=== PATIENT | female | born 1935 | race Caucasian/White ===

== ENCOUNTER 2016-11-06 10:49 | Emergency (ER) | payer MEDICARE, BC ==
--- NOTE | 2016-11-06 11:09 | EDM.PDOC ---
ED HPI Trauma - General Chief Complaint: Upper Extremity Injury/Pain Stated Complaint: HURT RT THUMB Time Seen by Provider: 11/06/16 11:08 Source: Reports: Patient, Family History Limitations: Reports: No limitations - History of Present Illness INITIAL COMMENTS - FREE TEXT/NARRATIVE: pt fell last nite and landed on her thumb. She has bruising a nd a small lac on the [place] aspect. Occurred When: this evening Occurred Where: home Method of Injury: fall Pain/Injury Location: Reports: upper extremity, right Consciousness: Reports: no loss of consciousness Allergies/ADRs: Allergies ciprofloxacin Allergy (Mild, Verified 11/06/16 11:05) Itching noted during iv infusion on 10.10.14 niacin Allergy (Verified 11/06/16 11:05) Cannot Remember "body went crazy" Penicillins Allergy (Verified 11/06/16 11:05) Rash Sulfa (Sulfonamide Antibiotics) Allergy (Verified 11/06/16 11:05) Sweating tolmetin sodium [From Tolectin] Allergy (Verified 11/06/16 11:05) Itching Home Medications: Ambulatory Orders Calcium Carbonate 500 mg PO DAILY 07/13/13 [Confirmed 10/09/14] Clobetasol [Temovate 0.05% Oint] 0.05 percent TOP BID 07/13/13 [Confirmed ] Cyanocobalamin (Vitamin B-12) [Vitamin B-12] 1,000 mcg PO DAILY 07/13/13 [ Confirmed 10/09/14] Gabapentin [Neurontin] 300 mg PO TID 07/13/13 [Confirmed 10/09/14] Levothyroxine Sodium [Levoxyl] 50 mcg PO DAILY 07/13/13 [Confirmed 10/09/14] Lisinopril [Prinivil] 10 mg PO DAILY 07/13/13 [Confirmed 10/09/14] Multivitamin [Multi-Vitamin Daily] 1 each PO DAILY 07/13/13 [Confirmed 10/09/14] PARoxetine [Paxil] 30 mg PO DAILY 07/13/13 [Confirmed 10/09/14] glyBURIDE/Metformin [glyBURIDE/Metformin 2.5-500 MG] 1 tab PO BID 07/13/13 [ Confirmed 10/09/14] Cephalexin [Keflex 250 MG/5 ML Susp] 500 mg PO BID #70 ml 10/11/14 Social & Family History - Tobacco Use Smoking Status *Q: Never Smoker Years of Tobacco use: 30 Used Tobacco, but Quit: Yes Month Tobacco Last Used: 07/1984 Second Hand Smoke Exposure: No - Alcohol Use Days Per Week of Alcohol Use: 0 - Recreational Drug Use Recreational Drug Use: No Review of Systems - Review of Systems Review Of Systems: See Below Constitutional: Reports: no symptoms Eyes: Reports: no symptoms Ears: Reports: no symptoms Nose: Reports: no symptoms Musculoskeletal: Reports: other ( rt thumb is swolen and there is a lac on the back--layton aspect. ) Skin: Reports: no symptoms Neurological: Reports: Other (Pt falls alot and she has been dealing with this for the past 4-5 years. ) Trauma Exam - Physical Exam Exam: See Below Text/Narrative:: Pt arrived with a swollen thumb which is very uncomfortable Exam Limited By: No limitations General Appearance: Reports: alert Head: Reports: atraumatic Extremities: Reports: other ( rt thumb is swollen . She has a lac on the layton aspect. She is dislocated at the knuckle area of the thumb. This area was injected with lidocaine and the dislocation was reduced. ) Course - Vital Signs Last Recorded V/S: Last Vital Signs Temp 36.2 C 11/06/16 11:05 Pulse 105 H 11/06/16 11:05 Resp 18 11/06/16 11:05 BP 172/68 H 11/06/16 11:05 Pulse Ox 95 11/06/16 11:05 - Orders/Labs/Meds Orders: Active Orders 24 hr Category Date Time Status Fingers Thumb Rt F5 [CR] Stat Exams 11/06/16 11:07 Taken Fingers Thumb Rt F5 [CR] Stat Exams 11/06/16 11:58 Ordered Meds: Medications Discontinued Medications Generic Name Dose Route Start Last Admin Trade Name Freq PRN Reason Stop Dose Admin Bacitracin 1 dose 11/06/16 11:59 Bacitracin Oint 1 Gm TOP 11/06/16 12:00 ONETIME ONE Lidocaine HCl 5 ml 11/06/16 11:37 Xylocaine-Mpf 1% INJECT 11/06/16 11:38 ONETIME ONE Departure - Departure Time of Disposition: 12:05 Disposition: Home, Self-Care 01 Condition: fair Clinical Impression: Dislocation of PIP joint of finger Forms: ED Department Discharge Care Plan Goals: -- open dislocation. elevate , cool pack, splint for 1 week, keflex 500mg tid for 1 week, appt with Ortho in 1 week. - My Orders Last 24 Hours: My Active Orders 11/06/16 11:07 Fingers Thumb Rt F5 [CR] Stat 11/06/16 11:58 Fingers Thumb Rt F5 [CR] Stat - Assessment/Plan Last 24 Hours: My Active Orders 11/06/16 11:07 Fingers Thumb Rt F5 [CR] Stat 11/06/16 11:58 Fingers Thumb Rt F5 [CR] Stat
[2016-11-06 11:12] VITALS: BP 172/68
[2016-11-06] MEDS ORDERED: Bacitracin Oint 1 GM U/D Packet TOP ONE (11:59)
--- NOTE | 2016-11-06 12:56 | CR ---
Fingers Thumb Rt F5 INDICATION: 1 view post interval reduction. FINDINGS: Reduction of the dorsal dislocation of the IP joint of the thumb. Acute, distracted fractu re fragment involving the volar aspect of the distal phalanx.
--- NOTE | 2016-11-06 12:57 | CR ---
Fingers Thumb Rt F5 INDICATION: swelling and pain rt thumb FINDINGS: Dorsal dislocation of the IP joint. Cortical irregularity of the volar aspect of the base of the distal phalanx suspicious for fracture. Advanced degenerative changes first CMC joint.
== END 2016-11-06 12:35 | disposition home or self-care (01) ==
LOC: JP.ED 10:49
DX: S63.134A Dislocation of proximal interphalangeal joint of right thumb, initial encounter (principal); Z79.2 Long term (current) use of antibiotics; Z79.899 Other long term (current) drug therapy; Z88.1 Allergy status to other antibiotic agents; Z88.8 Allergy status to other drugs, medicaments and biological substances; Z88.0 Allergy status to penicillin; Z88.2 Allergy status to sulfonamides; W19.XXXA Unspecified fall, initial encounter; Y92.099 Unspecified place in other non-institutional residence as the place of occurrence of the external cause
CPT/HCPCS: 26725; 26770; 28660; 73140-26-F5; 73140-F5; 99283-25; 99284-25

== ENCOUNTER 2017-11-13 08:31 | Day surgery (SDC) | payer MEDICARE, BC ==
[2017-11-13] MEDS ORDERED: Lactated Ringers 1,000 ML IV SCH (09:15)
[2017-11-13] MEDS ORDERED: Cyanocobalamin (Vitamin B12) 1,000 MCG/ML SDV IM ONE (09:30)
[2017-11-13] MEDS ORDERED: Glycopyrrolate 0.2 MG/ML 2 ML SDV IVPUSH ONE (09:45)
[2017-11-13] MEDS ORDERED: MVI, Adult with Vitamin K 10 ML, Thiamine 100 MG, Chromium/Copper/Mang/Selen/Zn 1 ML in... IV ONE ×4 (09:45)
[2017-11-13] MEDS ORDERED: Propofol 200 MG/20 ML SDV ONE (12:38)
[2017-11-13 14:37] VITALS: BP 165/81
--- NOTE | 2017-11-17 11:01 | OR ---
DATE OF PROCEDURE: 11/13/2017 PREOPERATIVE DIAGNOSIS: Dysphagia status post Sean-en-Y gastric bypass. POSTOPERATIVE DIAGNOSIS: Normal upper GI endoscopic examination status post Sean-en-Y gastric bypass. ANESTHESIA: IV sedation. INDICATION FOR PROCEDURE: This is an 82-year-old status post Sean-en-Y gastric bypass in 2002. Presently, she is afflicted with quite severe dementia, but is reporting dysphagia referable to the distal esophagus to gastric pouch area. She is not presently on any antisecretory medication. The plan is to proceed with an upper GI endoscopy with biopsies and/or dilation as indicated. Potential risks including bleeding and perforation were discussed, and the patient wishes to proceed. DETAILS OF PROCEDURE: The patient was taken to the operating room and placed in a left lateral decubitus position. IV sedation was administered, after which the upper GI endoscope was passed orally through the length of the esophagus and into the gastric pouch, from there through the gastrojejunostomy roughly 20 cm into the Sean limb. Overall, there were no abnormalities noted. There were no areas of significant inflammation and no strictures or other problematic findings at any point during the examination. There was no bile or food within the Sean limb, i.e. no evidence of any partial small bowel obstruction. At this point, biopsies were obtained from the gastric pouch and sent for CLOtest to assess the patient's H. pylori status. Minimal bleeding from the biopsy sites was seen and the procedure then concluded. This situation was discussed with the patient's . I think, at this point, to the extent possible, the patient should be counseled to be sure to chew her food well and perhaps take some more frequent drinks of liquids during a meal. This will be fairly difficult due to the patient's quite profound dementia at this point. She will be following up with Rowan Vazquez in 1 month. Gualberto Velasco MD /[id number]
== END 2017-11-13 14:47 | disposition home or self-care (01) ==
LOC: JP.SDS 08:31
PROVIDERS: ATTEND Surgery
DX: R13.10 Dysphagia, unspecified (principal); F03.90 Unspecified dementia, unspecified severity, without behavioral disturbance, psychotic disturbance, mood disturbance, and anxiety; Z98.84 Bariatric surgery status; Z88.0 Allergy status to penicillin; Z88.1 Allergy status to other antibiotic agents; Z88.2 Allergy status to sulfonamides; Z88.8 Allergy status to other drugs, medicaments and biological substances
CPT/HCPCS: 43239; 87081; J2704; J3411; J3420; J7120; J3490

== ENCOUNTER 2020-05-03 12:05 | Emergency (ER) | payer MEDICARE ==
--- NOTE | 2020-05-03 12:28 | EDM.PDOC ---
<Nubia Keller M - Last Filed: 05/03/20 14:14> ED HPI GENERAL MEDICAL PROBLEM - General Chief Complaint: General Time Seen by Provider: 05/03/20 14:24 Source of Information: Reports: Patient, Old Records, RN, RN Notes Reviewed History Limitations: Reports: Altered Mental Status - History of Present Illness INITIAL COMMENTS - FREE TEXT/NARRATIVE: Pt here after call from spouse after pt fell off the bed about 6-12 inches. Pt was lying supine. Spouse was unable to get pt on feet due to history of stroke and uncooperative.EMS was called. Old records indicate a history of CVA, vascular dementia, and memory problems. When asked about medical conditions, pt was unable to provide any meaningful history. Old records were retrieved. Onset: Today - Related Data Allergies Allergy/AdvReac Type Severity Reaction Status Date / Time ciprofloxacin Allergy Mild Itching Verified 11/13/17 09:07 niacin Allergy Cannot Verified 11/13/17 09:07 Remember Penicillins Allergy Rash Verified 11/13/17 09:07 Sulfa (Sulfonamide Allergy Sweating Verified 11/13/17 09:07 Antibiotics) tolmetin sodium Allergy Itching Verified 11/13/17 09:07 [From Tolectin] Home Meds: Home Meds Cyanocobalamin (Vitamin B-12) [Vitamin B-12] 1,000 mcg PO DAILY 07/13/13 [History] Gabapentin [Neurontin] 300 mg PO TID 07/13/13 [History] Levothyroxine Sodium [Levoxyl] 50 mcg PO DAILY 07/13/13 [History] Multivitamin [Multi-Vitamin Daily] 1 each PO DAILY 07/13/13 [History] PARoxetine [Paxil] 30 mg PO DAILY 07/13/13 [History] lisinopriL [Prinivil] 10 mg PO DAILY 07/13/13 [History] Anastrozole [Arimidex] 1 mg PO DAILY 11/12/17 [History] Cholecalciferol (Vitamin D3) [Vitamin D3] 1,000 unit PO DAILY 11/12/17 [History] Donepezil HCl 5 mg PO BEDTIME 11/12/17 [History] Past Medical History HEENT History: Reports: Allergic Rhinitis Cardiovascular History: Reports: Hypertension Respiratory History: Reports: Bronchitis, Recurrent, Pneumonia, Recurrent, Sleep Apnea Gastrointestinal History: Reports: Chronic Constipation, GERD, Other (See Below) Other Gastrointestinal History: nausea and vomiting Genitourinary History: Reports: None 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: Musculoskeletal History: Reports: Back Pain, Chronic, Fibromyalgia, Other (See Below) Other Musculoskeletal History: bursitis Neurological History: Reports: Neuropathy, Peripheral, Other (See Below) Other Neuro History: dementia Psychiatric History: Reports: Anxiety, Dementia, Depression, Panic Attack Endocrine/Metabolic History: Reports: Diabetes, Type II, Hypothyroidism Hematologic History: Reports: B12 Deficiency Oncologic (Cancer) History: Reports: Breast - Infectious Disease History Infectious Disease History: Reports: Chicken Pox, Measles, Mumps - Past Surgical History HEENT Surgical History: Reports: Oral Surgery, Tonsillectomy GI Surgical History: Reports: Appendectomy, Bariatric Procedure, Cholecystectomy, Colonoscopy, EGD Female Surgical History: Reports: Hysterectomy Neurological Surgical History: Reports: None Musculoskeletal Surgical History: Reports: Hip Replacement Oncologic Surgical History: Reports: Mastectomy Social & Family History - Family History Family Medical History: Noncontributory - Tobacco Use Smoking Status *Q: Never Smoker - Caffeine Use Caffeine Use: Reports: Soda ED ROS GENERAL - Review of Systems Review Of Systems: See Below Constitutional: Reports: Weakness (Hx CVA) HEENT: Reports: No Symptoms Respiratory: Reports: No Symptoms Cardiovascular: Reports: No Symptoms Endocrine: Reports: No Symptoms GI/Abdominal: Reports: No Symptoms : Reports: No Symptoms Musculoskeletal: Reports: Other (Hx CVA) Skin: Reports: Pallor, Dryness Neurological: Reports: Confusion, Pre-Existing Deficit, Weakness (Hx CVA and vascular dementia per chart ) Psychiatric: Reports: Confusion Hematologic/Lymphatic: Reports: No Symptoms ED EXAM, GENERAL - Physical Exam Exam: See Below Exam Limited By: Altered Mental Status General Appearance: Alert, No Apparent Distress Eye Exam: Bilateral Eye: PERRL Ears: Normal External Exam Nose: Normal Inspection Throat/Mouth: Normal Inspection Head: Normocephalic Neck: Normal Inspection Respiratory/Chest: No Respiratory Distress, Lungs Clear, Normal Breath Sounds, No Accessory Muscle Use Cardiovascular: Regular Rate, Rhythm, No Edema Peripheral Pulses: 1+: Dorsalis Pedis (L), Dorsalis Pedis (R), 2+: Radial (L), Radial (R) GI/Abdominal: Normal Bowel Sounds, Soft (Female) Exam: Other (Visualization of labia and groin area is denueded and red. Labia appears edematous and errythmeic. ) Rectal (Female) Exam: Deferred Back Exam: Normal Inspection Extremities: Normal Inspection, Normal Range of Motion, No Pedal Edema, Normal Capillary Refill Neurological: Alert, Confused, Disoriented Psychiatric: Other (Combative at times ) Lymphatic: No Adenopathy Departure - Departure Disposition: Home, Self-Care 01 Condition: Fair Clinical Impression: Fall Qualifiers: Encounter type: initial encounter Qualified Code(s): W19.XXXA - Unspecified fall, initial encounter - Discharge Information *PRESCRIPTION DRUG MONITORING PROGRAM REVIEWED*: Not Applicable *COPY OF PRESCRIPTION DRUG MONITORING REPORT IN PATIENT KARAN: Not Applicable Referrals: PCP,None [Primary Care Provider] - Forms: ED Department Discharge Care Plan Goals: All of the labs, urinalysis, and chest xray was good and no infection could be found. Please call the primary provider with any follow up or call 911 with immediate medical concerns. - Problem List & Annotations (1) Fall SNOMED Code(s): 5166521, 348961279 Code(s): W19.XXXA - UNSPECIFIED FALL, INITIAL ENCOUNTER Status: Acute Priority: High Current Visit: Yes Qualifiers: Encounter type: initial encounter Qualified Code(s): W19.XXXA - Unspecified fall, initial encounter - Problem List Review Problem List Initiated/Reviewed/Updated: Yes - Assessment/Plan Plan: All of the labs, urinalysis, and chest xray was good and no infection could be found. Please call the primary provider with any follow up or call 911 with immediate medical concerns <OfficerRocky - Last Filed: 05/03/20 14:26> ED ROS GENERAL - Review of Systems Review Of Systems: Unable To Obtain Reason Not Obtained: Review of systems difficult to obtain secondary to underlying dem ED EXAM, GENERAL - Physical Exam Free Text/Narrative:: Agree with below Exam Limited By: Altered Mental Status (Difficult to assess secondary to underlying dementia) Course - Vital Signs Last Recorded V/S: Last Vital Signs Temp 97.4 F 05/03/20 13:28 Pulse 63 05/03/20 13:28 Resp 16 05/03/20 13:28 BP 147/56 H 05/03/20 13:28 Pulse Ox 99 05/03/20 13:28 - Orders/Labs/Meds Orders: Active Orders 24 hr Category Date Time Status CULTURE URINE [RM] Stat Lab 05/03/20 14:05 Ordered CULTURE URINE [RM] Urgent Lab 05/03/20 13:47 Received Labs: Laboratory Tests 05/03/20 05/03/20 05/03/20 Range/Units 12:33 12:33 12:33 WBC 8.9 (4.5-11.0) K/uL RBC 4.11 (3.30-5.50) M/uL Hgb 12.4 (12.0-15.0) g/dL Hct 39.2 (36.0-48.0) % MCV 95 (80-98) fL MCH 30 (27-31) pg MCHC 32 (32-36) % Plt Count 209 (150-400) K/uL Neut % (Auto) 59 (36-66) % Lymph % (Auto) 28 (24-44) % [place] % (Auto) 10 H (2-6) % Eos % (Auto) 2 (2-4) % Baso % (Auto) 0 (0-1) % Sodium 138 L (140-148) mmol/L Potassium 4.2 (3.6-5.2) mmol/L Chloride 103 (100-108) mmol/L Carbon Dioxide 26 (21-32) mmol/L Anion Gap 13.2 (5.0-14.0) mmol/L BUN 25 H (7-18) mg/dL Creatinine 1.3 H (0.6-1.0) mg/dL Est Cr Clr Drug Dosing 28.31 mL/min Estimated GFR (MDRD) 39 L (>60) Glucose 109 H (74-106) mg/dL Lactic Acid 1.5 (0.4-2.0) mmol/L Calcium 9.1 (8.5-10.1) mg/dL Total Bilirubin 1.2 H D (0.2-1.0) mg/dL AST 16 (15-37) U/L ALT 15 (12-78) U/L Alkaline Phosphatase 91 (46-116) U/L Total Protein 6.9 (6.4-8.2) g/dL Albumin 3.2 L (3.4-5.0) g/dL Globulin 3.7 H (2.3-3.5) g/dL Albumin/Globulin Ratio 0.9 L (1.2-2.2) Urine Color (YELLOW) Urine Appearance (CLEAR) Urine pH (5.0-8.0) Ur Specific [place] (1.008-1.030) Urine Protein (NEGATIVE) mg/dL Urine Glucose (UA) (NEGATIVE) mg/dL Urine Ketones (NEGATIVE) mg/dL Urine Occult Blood (NEGATIVE) Urine Nitrite (NEGATIVE) Urine Bilirubin (NEGATIVE) Urine Urobilinogen (0.2-1.0) EU/dL Ur Leukocyte Esterase (NEGATIVE) Urine RBC (0-5) Urine WBC (0-5) Ur Epithelial Cells Amorphous Sediment Urine Bacteria Urine Mucus 05/03/20 Range/Units 13:09 WBC (4.5-11.0) K/uL RBC (3.30-5.50) M/uL Hgb (12.0-15.0) g/dL Hct (36.0-48.0) % MCV (80-98) fL MCH (27-31) pg MCHC (32-36) % Plt Count (150-400) K/uL Neut % (Auto) (36-66) % Lymph % (Auto) (24-44) % [place] % (Auto) (2-6) % Eos % (Auto) (2-4) % Baso % (Auto) (0-1) % Sodium (140-148) mmol/L Potassium (3.6-5.2) mmol/L Chloride (100-108) mmol/L Carbon Dioxide (21-32) mmol/L Anion Gap (5.0-14.0) mmol/L BUN (7-18) mg/dL Creatinine (0.6-1.0) mg/dL Est Cr Clr Drug Dosing mL/min Estimated GFR (MDRD) (>60) Glucose (74-106) mg/dL Lactic Acid (0.4-2.0) mmol/L Calcium (8.5-10.1) mg/dL Total Bilirubin (0.2-1.0) mg/dL AST (15-37) U/L ALT (12-78) U/L Alkaline Phosphatase (46-116) U/L Total Protein (6.4-8.2) g/dL Albumin (3.4-5.0) g/dL Globulin (2.3-3.5) g/dL Albumin/Globulin Ratio (1.2-2.2) Urine Color Yellow (YELLOW) Urine Appearance Clear (CLEAR) Urine pH 8.5 H (5.0-8.0) Ur Specific [place] 1.020 (1.008-1.030) Urine Protein 30 H (NEGATIVE) mg/dL Urine Glucose (UA) Negative (NEGATIVE) mg/dL Urine Ketones Negative (NEGATIVE) mg/dL Urine Occult Blood Negative (NEGATIVE) Urine Nitrite Negative (NEGATIVE) Urine Bilirubin Negative (NEGATIVE) Urine Urobilinogen 0.2 (0.2-1.0) EU/dL Ur Leukocyte Esterase Negative (NEGATIVE) Urine RBC Not seen (0-5) Urine WBC Not seen (0-5) Ur Epithelial Cells Not seen Amorphous Sediment Not seen Urine Bacteria Not seen Urine Mucus Not seen Departure - Departure Time of Disposition: 14:26 Condition: Poor Sepsis Event Note (ED) - Focused Exam Vital Signs: Vital Signs Temp Pulse Resp BP Pulse Ox 05/03/20 13:28 97.4 F 63 16 147/56 H 99 05/03/20 12:17 97.4 F 63 16 147/56 H 99 - My Orders Last 24 Hours: My Active Orders 05/03/20 13:47 CULTURE URINE [RM] Urgent - Assessment/Plan Last 24 Hours: My Active Orders 05/03/20 13:47 CULTURE URINE [RM] Urgent Plan: Assessment Acuity = acute Site and laterality = fall out of bed complicated patient with underlying perla ia history of CVA Etiology = unknown Manifestations = none Location of injury = Home Lab values = CBC, CMP, urinalysis, chest x-ray revealed no acute process Plan Plan is discharged home to family follow-up with primary care as scheduled Rocky Ontiveros MD was personally available for consultation in the ED. I have reviewed the chart and agree with the documentation as recor ded by the [employer] ARCHITECT Student, including the assessment, treatment plan and disposition. Rocky Ontiveros MD personally saw and examined the patient. I have reviewed and agree with the [employer] ARCHITECT Student's findings. This note was dictated using [employer] voice recognition software please call with any questions on syntax or grammar.
[2020-05-03 12:30] VITALS: BP 147/56; PULSE 63
--- NOTE | 2020-05-03 14:17 | CRLCR ---
INDICATION: Trauma, fall. TECHNIQUE: Chest 1 views COMPARISON: November 01, 2010 FINDINGS: Cardiovascular and mediastinum: Heart size and vasculature are normal in caliber and appearance. Lungs and pleural spaces: Lungs are clear. No sign of infiltrate or mass. No sign of pleural effusion. No pneumothorax. Bones and soft tissues: No significant findings. IMPRESSION: Negative chest. No sign of acute injury or disease. Dictated by Jigar House MD @ 05/03/2020 2:15:13 PM Dictated by: Jigar House MD @ 05/03/2020 14:15:18 (Electronically Signed)
== END 2020-05-03 14:44 | disposition home or self-care (01) ==
LOC: JP.ED 12:05
DX: F03.90 Unspecified dementia, unspecified severity, without behavioral disturbance, psychotic disturbance, mood disturbance, and anxiety (principal); I10 Essential (primary) hypertension; E11.42 Type 2 diabetes mellitus with diabetic polyneuropathy; E03.9 Hypothyroidism, unspecified; F41.9 Anxiety disorder, unspecified; F32.9 Major depressive disorder, single episode, unspecified; Z86.73 Personal history of transient ischemic attack (TIA), and cerebral infarction without residual deficits; Z88.1 Allergy status to other antibiotic agents; Z79.899 Other long term (current) drug therapy
CPT/HCPCS: 36415; 71045; 80053; 81001; 83605; 85025; 87086; 87088; 87186; 99283; 99285-25

== ENCOUNTER 2020-09-14 10:07 | Observation (INO) | payer MEDICARE ==
--- NOTE | 2020-09-14 10:19 | EDM.PDOC ---
ED HPI GENERAL MEDICAL PROBLEM - General Stated Complaint: FALL VIA [facility] Time Seen by Provider: 09/14/20 10:10 Source of Information: Reports: EMS History Limitations: Reports: Physical Impairment (Patient has significant dementia) - History of Present Illness INITIAL COMMENTS - FREE TEXT/NARRATIVE: 85-year-old female brought in by ambulance because of increasing weakness over the past several days. She has had several falls and was found on her kitchen floor today so the ambulance was called. She does not complain of any pain, however she has significant dementia and is unable to answer questions appropriately and consistently. She feels "fine". Onset: Unknown/Unsure - Related Data Allergies Allergy/AdvReac Type Severity Reaction Status Date / Time ciprofloxacin Allergy Mild Itching Verified 11/13/17 09:07 niacin Allergy Cannot Verified 09/14/20 10:40 Remember Penicillins Allergy Rash Verified 09/14/20 10:40 Sulfa (Sulfonamide Allergy Sweating Verified 09/14/20 10:40 Antibiotics) tolmetin sodium Allergy Itching Verified 09/14/20 10:40 [From Tolectin] Home Meds: Home Meds Levothyroxine Sodium [Levoxyl] 50 mcg PO DAILY 07/13/13 [History] Cholecalciferol (Vitamin D3) [Vitamin D3] 1,000 unit PO DAILY 11/12/17 [History] Acetaminophen [Pain Reliever] 500 mg PO ASDIRECTED 09/14/20 [History] Aspirin 81 mg PO DAILY 09/14/20 [History] B-Complex with Vitamin C [B-Complex with C] 1 tab PO DAILY 09/14/20 [History] Citalopram Hydrobromide [Celexa] 40 mg PO DAILY 09/14/20 [History] Omeprazole 40 mg PO DAILY 09/14/20 [History] atorvaSTATin [Lipitor] 10 mg PO DAILY 09/14/20 [History] Past Medical History HEENT History: Reports: Allergic Rhinitis Cardiovascular History: Reports: Hypertension Respiratory History: Reports: Bronchitis, Recurrent, Pneumonia, Recurrent, Sleep Apnea Gastrointestinal History: Reports: Chronic Constipation, GERD, Other (See Below) Other Gastrointestinal History: nausea and vomiting Genitourinary History: Reports: 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: Musculoskeletal History: Reports: Back Pain, Chronic, Fibromyalgia, Other (See Below) Other Musculoskeletal History: bursitis Neurological History: Reports: Neuropathy, Peripheral, Other (See Below) Other Neuro History: dementia Psychiatric History: Reports: Anxiety, Dementia, Depression, Panic Attack Endocrine/Metabolic History: Reports: Diabetes, Type II, Hypothyroidism Hematologic History: Reports: B12 Deficiency Oncologic (Cancer) History: Reports: Breast - Infectious Disease History Infectious Disease History: Reports: Chicken Pox, Measles, Mumps - Past Surgical History HEENT Surgical History: Reports: Oral Surgery, Tonsillectomy GI Surgical History: Reports: Appendectomy, Bariatric Procedure, Cholecystectomy, Colonoscopy, EGD Female Surgical History: Reports: Hysterectomy Neurological Surgical History: Reports: None Musculoskeletal Surgical History: Reports: Hip Replacement Oncologic Surgical History: Reports: Mastectomy Social & Family History - Family History Family Medical History: No Pertinent Family History - Caffeine Use Caffeine Use: Reports: Soda ED ROS GENERAL - Review of Systems Review Of Systems: See Below (Unable to obtain as the patient's reply to everything is negative, likely inaccurate) ED EXAM, GENERAL - Physical Exam Exam: See Below Exam Limited By: No Limitations General Appearance: Alert, No Apparent Distress, Other (Patient is smiling, comfortable, pleasant) Eye Exam: Bilateral Eye: Normal Inspection Head: Atraumatic Neck: Supple Respiratory/Chest: Lungs Clear Cardiovascular: Regular Rate, Rhythm GI/Abdominal: Soft, Non-Tender (Female) Exam: Other (External genitalia, both vulva and perineal area are very hyperkeratotic and thickened, discolored but appears chronic. No significant tenderness with palpation). No: Normal External Exam Extremities: Normal Inspection. No: Pedal Edema Neurological: Alert. No: Oriented (Significantly confused, disoriented to time and place which is baseline) Psychiatric: Other (Extremely pleasant affect) Skin Exam: Warm, Dry (No bruising or ecchymosis seen) Course - Vital Signs Last Recorded V/S: Last Vital Signs Temp 96.9 F 09/15/20 08:10 Pulse 65 09/15/20 08:10 Resp 16 09/15/20 03:01 BP 149/46 H 09/15/20 08:10 Pulse Ox 97 09/15/20 08:10 - Orders/Labs/Meds Orders: Active Orders 24 hr Category Date Time Status CULTURE URINE [RM] Stat Lab 09/14/20 11:54 Results cefTRIAXone [Rocephin] 1 gm Med 09/14/20 14:00 Active Sodium Chloride 0.9% [Normal Saline] 50 ml IV Q24H Medication Orders Acetaminophen (Tylenol) 650 mg PO Q4H PRN PRN Reason: Pain (Mild 1-3)/fever Aspirin (Aspirin) 81 mg PO DAILY [facility] Last Admin: 09/15/20 08:34 Dose: 81 mg Documented by: ARABELLA Cosigned by: FELIPE Atorvastatin Calcium (Lipitor) 10 mg PO BEDTIME [facility] Enoxaparin Sodium (Lovenox) 30 mg SUBCUT DAILY [facility] Last Admin: 09/15/20 08:35 Dose: 30 mg Documented by: ARABELLA Cosigned by: FELIPE Haloperidol (Haldol) 1 mg PO Q2H PRN PRN Reason: Agitation Ceftriaxone Sodium 1 gm/ (Sodium Chloride) 50 mls @ 100 mls/hr IV Q24H [facility] Last Admin: 09/14/20 14:49 Dose: 100 mls/hr Documented by: ALEXX Sodium Chloride (Normal Saline) 1,000 mls @ 75 mls/hr IV ASDIRECTED [facility] Last Admin: 09/14/20 14:49 Dose: 75 mls/hr Documented by: [id number] Iopamidol (Isovue-300 (61%)) 100 ml IV . DIRECTED PRN PRN Reason: RADIOLOGY EXAM Stop: 09/15/20 15:20 Last Admin: 09/14/20 18:05 Dose: 100 ml Documented by: FAIZA Levothyroxine Sodium (Synthroid) 50 mcg PO ACBREAKFAST [facility] Last Admin: 09/15/20 08:33 Dose: 50 mcg Documented by: ARABELLA Cosigned by: FELIPE Melatonin (Melatonin) 9 mg PO BEDTIME [facility] Last Admin: 09/14/20 20:20 Dose: 9 mg Documented by: VIRGEN Ondansetron HCl (Zofran) 4 mg IV Q4H PRN PRN Reason: Nausea/Vomiting Omeprazole 40mg Cap ((Ptom)) 0 each PO ACBREAKFAST [facility] Last Admin: 09/15/20 08:32 Dose: 1 each Documented by: ARABELLA Cosigned by: FELIPE Citalopram 40mg Tab ((Ptom)) 0 each PO DAILY [facility] Last Admin: 09/15/20 08:36 Dose: 1 each Documented by: ARABELLA Cosigned by: FELIPE Polyethylene Glycol (Miralax) 17 gm PO DAILY PRN PRN Reason: Constipation Sodium Chloride (Saline Flush) 10 ml FLUSH ASDIRECTED PRN PRN Reason: Keep Vein Open Labs: Laboratory Tests 09/14/20 09/14/20 09/14/20 Range/Units 10:27 10:27 11:25 WBC 8.2 (4.5-11.0) K/uL RBC 3.73 (3.30-5.50) M/uL Hgb 11.9 L (12.0-15.0) g/dL Hct 36.5 (36.0-48.0) % MCV 98 (80-98) fL MCH 32 H (27-31) pg MCHC 33 (32-36) % Plt Count 147 L (150-400) K/uL Neut % (Auto) 52 (36-66) % Lymph % (Auto) 36 (24-44) % [place] % (Auto) 11 H (2-6) % Eos % (Auto) 2 (2-4) % Baso % (Auto) 0 (0-1) % Sodium 141 (140-148) mmol/L Potassium 4.3 (3.6-5.2) mmol/L Chloride 104 (100-108) mmol/L Carbon Dioxide 26 (21-32) mmol/L Anion Gap 10.7 (5.0-14.0) mmol/L BUN 25 H (7-18) mg/dL Creatinine 1.1 H (0.6-1.0) mg/dL Est Cr Clr Drug Dosing 32.75 mL/min Estimated GFR (MDRD) 47 L (>60) Glucose 88 (74-106) mg/dL Calcium 9.2 (8.5-10.1) mg/dL Total Bilirubin 1.4 H (0.2-1.0) mg/dL AST 16 (15-37) U/L ALT 18 (12-78) U/L Alkaline Phosphatase 84 (46-116) U/L Creatine Kinase 29 (26-192) U/L Total Protein 6.5 (6.4-8.2) g/dL Albumin 3.1 L (3.4-5.0) g/dL Globulin 3.4 (2.3-3.5) g/dL Albumin/Globulin Ratio 0.9 L (1.2-2.2) Urine Color Yellow (YELLOW) Urine Appearance Cloudy A (CLEAR) Urine pH 6.0 (5.0-8.0) Ur Specific [place] 1.020 (1.008-1.030) Urine Protein Negative (NEGATIVE) mg/dL Urine Glucose (UA) Negative (NEGATIVE) mg/dL Urine Ketones 15 H (NEGATIVE) mg/dL Urine Occult Blood Negative (NEGATIVE) Urine Nitrite Positive H (NEGATIVE) Urine Bilirubin Negative (NEGATIVE) Urine Urobilinogen 1.0 (0.2-1.0) EU/dL Ur Leukocyte Esterase Negative (NEGATIVE) Urine RBC 0-5 (0-5) Urine WBC 0-5 (0-5) Ur Epithelial Cells Not seen Amorphous Sediment Not seen Urine Bacteria Many Urine Mucus Not seen Meds: Medications Generic Name Dose Route Start Last Admin Trade Name Freq PRN Reason Stop Dose Admin Acetaminophen 650 mg 09/14/20 14:39 Tylenol PO Q4H PRN Pain (Mild 1-3)/fever Aspirin 81 mg 09/15/20 09:00 09/15/20 08:34 Aspirin PO 81 mg DAILY [facility] Administration Atorvastatin Calcium 10 mg 09/15/20 21:00 Lipitor PO BEDTIME [facility] Enoxaparin Sodium 30 mg 09/15/20 09:00 09/15/20 08:35 Lovenox SUBCUT 30 mg DAILY [facility] Administration Haloperidol 1 mg 09/14/20 14:39 Haldol PO Q2H PRN Agitation Ceftriaxone Sodium 1 gm/ 50 mls @ 100 mls/hr 09/14/20 14:00 09/14/20 14:49 Sodium Chloride IV 100 mls/hr Q24H [facility] Administration Sodium Chloride 1,000 mls @ 75 mls/hr 09/14/20 14:39 09/14/20 14:49 Normal Saline IV 75 mls/hr ASDIRECTED [facility] Administration Iopamidol 100 ml 09/14/20 15:19 09/14/20 18:05 Isovue-300 (61%) IV 09/15/20 15:20 100 ml . DIRECTED PRN Administration RADIOLOGY EXAM Levothyroxine Sodium 50 mcg 09/15/20 08:00 09/15/20 08:33 Synthroid PO 50 mcg ACBREAKFAST [facility] Administration Melatonin 9 mg 09/14/20 21:00 09/14/20 20:20 Melatonin PO 9 mg BEDTIME [facility] Administration Ondansetron HCl 4 mg 09/14/20 14:39 Zofran IV Q4H PRN Nausea/Vomiting Omeprazole 40mg Cap 0 each 09/15/20 08:00 09/15/20 08:32 (Ptom) PO 1 each ACBREAKFAST [facility] Administration Citalopram 40mg Tab 0 each 09/15/20 09:00 09/15/20 08:36 (Ptom) PO 1 each DAILY [facility] Administration Polyethylene Glycol 17 gm 09/14/20 14:39 Miralax PO DAILY PRN Constipation Sodium Chloride 10 ml 09/14/20 14:39 Saline Flush FLUSH ASDIRECTED PRN Keep Vein Open Discontinued Medications Generic Name Dose Route Start Last Admin Trade Name Freq PRN Reason Stop Dose Admin Enoxaparin Sodium 40 mg 09/14/20 16:00 09/14/20 17:24 Lovenox SUBCUT Not Given Q24H [facility] Lidocaine/Epinephrine 50 ml 09/15/20 09:00 Xylocaine 1% With Epinephrine 1:100,000 INJECT 09/15/20 09:01 ONETIME ONE Nitrofurantoin Macrocrystals 100 mg 09/14/20 11:51 09/14/20 13:12 Macrobid PO 09/14/20 11:52 100 mg ONETIME ONE Administration Sodium Chloride 10 ml 09/14/20 15:19 09/14/20 16:20 Saline Flush FLUSH 09/14/20 15:20 10 ml ONETIME ONE Administration - Re-Assessments/Exams Free Text/Narrative Re-Assessment/Exam: 09/14/20 10:19 Mini cath UA will be obtained as well as a CBC and CMP. CK to rule out possible rhabdomyolysis. 09/14/20 11:11 CBC and CMP are relatively normal, CK is normal. UA is pending. 09/14/20 12:03 UA is nitrite positive along with many bacteria. A culture was initiated and the patient was given 100 mg of oral Macrobid. She will be continued on that through the weekend for the next 5 days, and I talked to Chris Ojeda about rechecking her early next week not only to reassess her physical condition and her response to treatment, but also to discuss with the patient and family whether more evaluation of the perineal abnormalities need further investigation. 09/14/20 13:35 Patient was able to take the first dose of Macrobid but was unable to stand to assist on a commode. Apparently this is a fairly rapid escalation of weakness for her over the past several days and the family was barely able to take care of her to begin with. She still is not complaining of any pain anywhere, I had a discussion with her [id number] she is wondering if she may have had another small stroke. I think she will need admission to monitor for a few days and then decide whether long-term care is needed rather than going back home. Departure - Departure Time of Disposition: 14:44 Disposition: Home, Self-Care 01 Clinical Impression: UTI (urinary tract infection), uncomplicated, Weakness - Discharge Information - My Orders Last 24 Hours: My Active Orders 09/14/20 11:54 CULTURE URINE [RM] Stat - Assessment/Plan Last 24 Hours: My Active Orders 09/14/20 11:54 CULTURE URINE [RM] Stat
[2020-09-14] MEDS ORDERED: Nitrofurantoin Monohydrate/Macrocrystalline 100 MG Cap PO ONE (11:51)
--- NOTE | 2020-09-14 14:00 | PCM.HP.2 ---
H&P History of Present Illness - General Date of Service: 09/14/20 Admit Problem/Dx: Admission Diagnosis/Problem Admission Diagnosis/Problem Weakness Source of Information: Family, Provider, RN Notes Reviewed. No: Patient History Limitations: Reports: Altered Mental Status (Dementia with significant confusion) - History of Present Illness Initial Comments - Free Text/Narative: Ms. Stephens is an 85-year-old woman who was admitted to observation status through the emergency department with recent history of progressive weakness and worsening dementia with increased confusion. Dementia has been worsening over the past several months, now in the past week she has become extremely weak to the point where she has difficulty with transitions and increase in falls. She was brought into the emergency department because she fell this morning and they were unable to get her up off of the floor. Evaluation is unremarkable except for possible urinary tract infection. Family feels that they are unable to provide ongoing care for her at home because of her progressive weakness. 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 Patient is unable to provide a meaningful history concerning recent symptoms or review of systems because of her underlying dementia and cognitive impairment. - Related Data Allergies/Adverse Reactions: Allergies Allergy/AdvReac Type Severity Reaction Status Date / Time ciprofloxacin Allergy Mild Itching Verified 11/13/17 09:07 niacin Allergy Cannot Verified 09/14/20 10:40 Remember Penicillins Allergy Rash Verified 09/14/20 10:40 Sulfa (Sulfonamide Allergy Sweating Verified 09/14/20 10:40 Antibiotics) tolmetin sodium Allergy Itching Verified 09/14/20 10:40 [From Tolectin] Home Medications: Home Meds RX: Levothyroxine Sodium [Levoxyl] 50 mcg PO DAILY 07/13/13 [History] Cholecalciferol (Vitamin D3) [Vitamin D3] 1,000 unit PO DAILY 11/12/17 [History] B-Complex with Vitamin C [B-Complex with C] 1 tab PO DAILY 09/14/20 [History] RX: Acetaminophen [Pain Reliever] 500 mg PO ASDIRECTED 09/14/20 [History] RX: Aspirin 81 mg PO DAILY 09/14/20 [History] RX: Citalopram Hydrobromide [Celexa] 40 mg PO DAILY 09/14/20 [History] RX: Omeprazole 40 mg PO DAILY 09/14/20 [History] RX: atorvaSTATin [Lipitor] 10 mg PO DAILY 09/14/20 [History] Past Medical History HEENT History: Reports: Allergic Rhinitis Cardiovascular History: Reports: Hypertension Respiratory History: Reports: Bronchitis, Recurrent, Pneumonia, Recurrent, Sleep Apnea Gastrointestinal History: Reports: Chronic Constipation, GERD, Other (See Below) Other Gastrointestinal History: nausea and vomiting Genitourinary 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: Reports: 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: Musculoskeletal History: Reports: Back Pain, Chronic, Fibromyalgia, Other (See Below) Other Musculoskeletal History: bursitis Neurological History: Reports: Neuropathy, Peripheral, Other (See Below) Other Neuro History: dementia Psychiatric History: Reports: Anxiety, Dementia, Depression, Panic Attack Endocrine/Metabolic History: Reports: Diabetes, Type II, Hypothyroidism Hematologic History: Reports: B12 Deficiency Oncologic (Cancer) History: Reports: Breast - Infectious Disease History Infectious Disease History: Reports: Chicken Pox, Measles, Mumps - Past Surgical History HEENT Surgical History: Reports: Oral Surgery, Tonsillectomy GI Surgical History: Reports: Appendectomy, Bariatric Procedure, Cholecystectomy, Colonoscopy, EGD Female Surgical History: Reports: Hysterectomy Musculoskeletal Surgical History: Reports: Hip Replacement Oncologic Surgical History: Reports: Mastectomy Social & Family History - Family History Family Medical History: No Pertinent Family History - Tobacco Use Tobacco Use Status *Q: Unknown Ever Used Tobacco - Caffeine Use Caffeine Use: Reports: Soda H&P Review of Systems - Review of Systems: Review Of Systems: See Below General: Reports: ROS unobtainable (Dementia with confusion) Exam - Exam Exam: See Below - Vital Signs Vital Signs: Last Vital Signs Temp 98.9 F 09/14/20 10:32 Pulse 59 L 09/14/20 10:32 Resp 18 09/14/20 10:32 BP 158/53 H 09/14/20 10:32 Pulse Ox 100 09/14/20 10:32 Weight: 120 lb 2.431 oz - Exam Quality Assessment: DVT Prophylaxis General: Alert, Cooperative, Mild Distress. No: Oriented HEENT: Conjunctiva Clear, Hearing Intact, Mucosa Moist & [place], Normal Nasal Septum, Posterior Pharynx Clear, Pupils Equal Neck: Supple, Trachea Midline, +2 Carotid Pulse wo Bruit Lungs: Clear to Auscultation, Normal Respiratory Effort Cardiovascular: Regular Rate, Regular Rhythm, Normal S1, Normal S2. No: Systolic Murmur, Diastolic Murmur GI/Abdominal Exam: Soft, Non-Tender, No Organomegaly, No Distention (Female) Exam: Other (Thickened hypertrophic skin around the external genitalia) Back Exam: Normal Inspection, Full Range of Motion Extremities: Non-Tender, No Pedal Edema Skin: Warm, Dry, Intact Neurological: Cranial Nerves Intact, Strength Equal Bilateral, Normal Speech, Normal Tone, Sensation Intact. No: Focal Deficit Neuro Extensive - Mental Status: Alert, Normal Mood/Affect, Disorientation to Place, Disorientation to Time, Memory Loss-Remote Events, Memory Loss-Recent Events. No: Normal Cognition, Memory Intact - Patient Data Lab Results Last 24 hrs: Laboratory Results - last 24 hr 09/14/20 09/14/20 09/14/20 Range/Units 10:27 10:27 11:25 WBC 8.2 (4.5-11.0) K/uL RBC 3.73 (3.30-5.50) M/uL Hgb 11.9 L (12.0-15.0) g/dL Hct 36.5 (36.0-48.0) % MCV 98 (80-98) fL MCH 32 H (27-31) pg MCHC 33 (32-36) % Plt Count 147 L (150-400) K/uL Neut % (Auto) 52 (36-66) % Lymph % (Auto) 36 (24-44) % [place] % (Auto) 11 H (2-6) % Eos % (Auto) 2 (2-4) % Baso % (Auto) 0 (0-1) % Sodium 141 (140-148) mmol/L Potassium 4.3 (3.6-5.2) mmol/L Chloride 104 (100-108) mmol/L Carbon Dioxide 26 (21-32) mmol/L Anion Gap 10.7 (5.0-14.0) mmol/L BUN 25 H (7-18) mg/dL Creatinine 1.1 H (0.6-1.0) mg/dL Est Cr Clr Drug Dosing 32.75 mL/min Estimated GFR (MDRD) 47 L (>60) Glucose 88 (74-106) mg/dL Calcium 9.2 (8.5-10.1) mg/dL Total Bilirubin 1.4 H (0.2-1.0) mg/dL AST 16 (15-37) U/L ALT 18 (12-78) U/L Alkaline Phosphatase 84 (46-116) U/L Creatine Kinase 29 (26-192) U/L Total Protein 6.5 (6.4-8.2) g/dL Albumin 3.1 L (3.4-5.0) g/dL Globulin 3.4 (2.3-3.5) g/dL Albumin/Globulin Ratio 0.9 L (1.2-2.2) Urine Color Yellow (YELLOW) Urine Appearance Cloudy A (CLEAR) Urine pH 6.0 (5.0-8.0) Ur Specific [place] 1.020 (1.008-1.030) Urine Protein Negative (NEGATIVE) mg/dL Urine Glucose (UA) Negative (NEGATIVE) mg/dL Urine Ketones 15 H (NEGATIVE) mg/dL Urine Occult Blood Negative (NEGATIVE) Urine Nitrite Positive H (NEGATIVE) Urine Bilirubin Negative (NEGATIVE) Urine Urobilinogen 1.0 (0.2-1.0) EU/dL Ur Leukocyte Esterase Negative (NEGATIVE) Urine RBC 0-5 (0-5) Urine WBC 0-5 (0-5) Ur Epithelial Cells Not seen Amorphous Sediment Not seen Urine Bacteria Many Urine Mucus Not seen Result Diagrams: 09/14/20 10:27 09/14/20 10:27 Sepsis Event Note - Evaluation Sepsis Screening Result: No Definite Risk - Focused Exam Vital Signs: Vital Signs Temp Pulse Resp BP Pulse Ox 09/14/20 10:32 98.9 F 59 L 18 158/53 H 100 *Q Meaningful Use (ADM) - VTE Risk Assess *Q Each Risk Factor Represents 1 Point: None Total Score 1 Point Risk Factors: 0 Each Risk Factor Represents 2 Points: None Total Score 2 Point Risk Factors: 0 Each Risk Factor Represents 3 Points: Age 75 Years or Greater Total Score 3 Point Risk Factors: 3 Each Risk Factor Represents 5 Points: None Total Score 5 Point Risk Factors: 0 Venous Thromboembolism Risk Factor Score *Q: 3 Problem List Initiated/Reviewed/Updated: Yes Orders Last 24hrs: Active Orders 24 hr Category Date Time Status Patient Status Manage Transfer [TRANSFER] Routine ADT 09/14/20 13:54 Active CORONAVIRUS COVID-19, ANDREW Stat Lab 09/14/20 13:53 Ordered CULTURE URINE [RM] Stat Lab 09/14/20 11:54 Received cefTRIAXone [Rocephin] 1 gm Med 09/14/20 14:00 Active Sodium Chloride 0.9% [Normal Saline] 50 ml IV Q24H Resuscitation Status Routine Resus Stat 09/14/20 13:56 Ordered Medication Orders Ceftriaxone Sodium 1 gm/ (Sodium Chloride) 50 mls @ 100 mls/hr IV Q24H [facility] Assessment/Plan Comment:: ASSESSMENT AND PLAN WEAKNESS-this has been an issue for some time but abruptly worse over the last 24 hours. No obvious focal neurologic findings noted on exam but she has difficulty in cooperating with a detailed exam because of her dementia. Family would like to explore this further with CT scan but would be unlikely to do much more than that. -CT scan of the head with and without contrast -Physical therapy consult PROGRESSIVE DEMENTIA-this has become progressively worse over the past several months, is no longer able to care for her at home -Proceed with custodial placement POSSIBLE UTI-urinalysis does show some bacteria and positive nitrites but no white cells. 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 DISPOSITION-anticipate discharge to home after the hospital stay. PRIMARY CARE PROVIDER-Chris Ojeda - Mortality Measure Prognosis:: Good
[2020-09-14] MEDS ORDERED: Ondansetron 4 MG/2 ML SDV IV PRN (14:39)
[2020-09-14] MEDS ORDERED: Polyethylene Glycol 3350 Powder 17 GM Packet PO PRN (14:39)
[2020-09-14] MEDS ORDERED: Sodium Chloride 0.9% 1,000 ML IV SCH (14:39)
[2020-09-14] MEDS ORDERED: Haloperidol 1 MG Tab PO PRN (14:39)
[2020-09-14] MEDS ORDERED: Sodium Chloride 0.9% 10 ML Syringe FLUSH PRN (14:39)
[2020-09-14] MEDS ORDERED: Acetaminophen 325 MG Tab PO PRN (14:39)
[2020-09-14] MEDS: cefTRIAXone 1 GM in Sodium Chloride 0.9% 50 ML IV SCH (14:49)
[2020-09-14] MEDS ORDERED: Sodium Chloride 0.9% 10 ML Syringe FLUSH ONE (15:19)
[2020-09-14] MEDS ORDERED: Iopamidol 612 MG/ML 100 ML Bottle IV PRN (15:19)
[2020-09-14] MEDS ORDERED: Enoxaparin 40 MG/0.4 ML Syringe SUBCUT SCH (16:00)
--- NOTE | 2020-09-14 18:52 | CRLCT ---
INDICATION: new weakness, hx of CVA CT HEAD WITHOUT AND WITH CONTRAST TECHNIQUE: Multiple axial CT images were performed through the head prior to and following intravenous contrast administration using 100 mL Isovue-300. COMPARISON: 07/21/[address] FINDINGS: No acute intracranial hemorrhage is identified. No extra-axial collections are evident and there is no mass effect or midline shift. There is mild diffuse age-related brain atrophy, as before. Ventricular size and configuration are within normal limits for the patient`s age. There is a small chronic infarct in the right frontal lobe which is new compared to the prior exam. There is stable patchy hypodensity in the periventricular white matter, a nonspecific finding which most likely reflects chronic small vessel ischemic change. No abnormal intracranial enhancement is demonstrated. Intracranial atherosclerotic vascular calcifications are noted. Osseous structures are within normal limits and no fractures are seen. Included portions of the paranasal sinuses and mastoid air cells are normally aerated. IMPRESSION: 1. No acute intracranial abnormality identified. 2. Small chronic infarct in the right frontal lobe, new compared to the previous exam. 3. Mild age-related brain atrophy, white matter hypodensity consistent with chronic small vessel ischemic change, and intracranial atherosclerotic vascular calcifications, stable from before. SAM GRULLON MD [employer] Dictated by Min Grullon MD @ 09/14/2020 6:50:23 PM Dictated by: Min Grullon MD @ 09/14/2020 18:51:49 (Electronically Signed)
[2020-09-14] MEDS: Melatonin 3 MG Tab PO SCH (20:20)
--- NOTE | 2020-09-15 07:31 | PCM.CONS ---
H&P History of Present Illness - General Date of Service: 09/15/20 Admit Problem/Dx: Admission Diagnosis/Problem Admission Diagnosis/Problem Weakness Source of Information: EMS History Limitations: Reports: Other (patient has dementia ) - History of Present Illness Initial Comments - Free Text/Narative: Barbara is an 85 year old female who was admitted for other health problems and was noted to have a lesion and mass on her labia. Dominic Alcantara MD requested a surgical consultation. - Related Data Allergies/Adverse Reactions: Allergies Allergy/AdvReac Type Severity Reaction Status Date / Time ciprofloxacin Allergy Mild Itching Verified 11/13/17 09:07 niacin Allergy Cannot Verified 09/14/20 10:40 Remember Penicillins Allergy Rash Verified 09/14/20 10:40 Sulfa (Sulfonamide Allergy Sweating Verified 09/14/20 10:40 Antibiotics) tolmetin sodium Allergy Itching Verified 09/14/20 10:40 [From Tolectin] Home Medications: Home Meds Levothyroxine Sodium [Levoxyl] 50 mcg PO DAILY 07/13/13 [History] Cholecalciferol (Vitamin D3) [Vitamin D3] 1,000 unit PO DAILY 11/12/17 [History] Acetaminophen [Pain Reliever] 500 mg PO ASDIRECTED 09/14/20 [History] Aspirin 81 mg PO DAILY 09/14/20 [History] B-Complex with Vitamin C [B-Complex with C] 1 tab PO DAILY 09/14/20 [History] Citalopram Hydrobromide [Celexa] 40 mg PO DAILY 09/14/20 [History] Omeprazole 40 mg PO DAILY 09/14/20 [History] atorvaSTATin [Lipitor] 10 mg PO DAILY 09/14/20 [History] Past Medical History HEENT History: Reports: Allergic Rhinitis Cardiovascular History: Reports: Hypertension Respiratory History: Reports: Bronchitis, Recurrent, Pneumonia, Recurrent, Sleep Apnea Gastrointestinal History: Reports: Chronic Constipation, GERD, Other (See Below) Other Gastrointestinal History: nausea and vomiting Genitourinary History: Reports: None [employer] History: Reports: Musculoskeletal History: Reports: Back Pain, Chronic, Fibromyalgia, Other (See Below) Other Musculoskeletal History: bursitis Neurological History: Reports: Neuropathy, Peripheral, Other (See Below) Other Neuro History: dementia Psychiatric History: Reports: Anxiety, Dementia, Depression, Panic Attack Endocrine/Metabolic History: Reports: Diabetes, Type II, Hypothyroidism Hematologic History: Reports: B12 Deficiency Oncologic (Cancer) History: Reports: Breast - Infectious Disease History Infectious Disease History: Reports: Chicken Pox, Measles, Mumps - Past Surgical History HEENT Surgical History: Reports: Oral Surgery, Tonsillectomy GI Surgical History: Reports: Appendectomy, Bariatric Procedure, Cholecystectomy, Colonoscopy, EGD Female Surgical History: Reports: Hysterectomy Neurological Surgical History: Reports: None Musculoskeletal Surgical History: Reports: Hip Replacement Oncologic Surgical History: Reports: Mastectomy Social & Family History - Family History Family Medical History: No Pertinent Family History - Tobacco Use Tobacco Use Status *Q: Unknown Ever Used Tobacco - Caffeine Use Caffeine Use: Reports: Other H&P Review of Systems - Review of Systems: Review Of Systems: Unable To Obtain Reason Not Obtained: Dementia Exam - Exam Exam: See Below - Vital Signs Vital Signs: Last Vital Signs Temp 96.9 F 09/15/20 03:01 Pulse 75 09/15/20 03:01 Resp 16 09/15/20 03:01 BP 145/45 H 09/15/20 03:01 Pulse Ox 94 L 09/15/20 03:01 Weight: 123 lb 12.8 oz - Exam General: Other (confused ) HEENT: Other (very camara) Neck: Supple Lungs: Clear to Auscultation, Normal Respiratory Effort Cardiovascular: Regular Rate GI/Abdominal Exam: Soft (Female) Exam: Other (mass in the right labia with white skin discoloration in the right lateral labia fold. Tender to palpate.) Rectal (Female) Exam: Deferred Back Exam: Normal Inspection Extremities: Normal Inspection Skin: Warm, Dry, Intact Neurological: Clonus (not assessed ), Other Neuro Extensive - Mental Status: Disorientation to Person, Disorientation to Place, Disorientation to Time Neuro Extensive - Motor, Sensory, Reflexes: Other (not assessed) Psychiatric: Other (dementia - not able to understand speech ) - Patient Data Lab Results Last 24 hrs: Laboratory Results - last 24 hr 09/14/20 09/14/20 09/14/20 Range/Units 10:27 10:27 11:25 WBC 8.2 (4.5-11.0) K/uL RBC 3.73 (3.30-5.50) M/uL Hgb 11.9 L (12.0-15.0) g/dL Hct 36.5 (36.0-48.0) % MCV 98 (80-98) fL MCH 32 H (27-31) pg MCHC 33 (32-36) % Plt Count 147 L (150-400) K/uL Neut % (Auto) 52 (36-66) % Lymph % (Auto) 36 (24-44) % [place] % (Auto) 11 H (2-6) % Eos % (Auto) 2 (2-4) % Baso % (Auto) 0 (0-1) % Sodium 141 (140-148) mmol/L Potassium 4.3 (3.6-5.2) mmol/L Chloride 104 (100-108) mmol/L Carbon Dioxide 26 (21-32) mmol/L Anion Gap 10.7 (5.0-14.0) mmol/L BUN 25 H (7-18) mg/dL Creatinine 1.1 H (0.6-1.0) mg/dL Est Cr Clr Drug Dosing 32.75 mL/min Estimated GFR (MDRD) 47 L (>60) Glucose 88 (74-106) mg/dL Calcium 9.2 (8.5-10.1) mg/dL Magnesium (1.8-2.4) mg/dL Total Bilirubin 1.4 H (0.2-1.0) mg/dL AST 16 (15-37) U/L ALT 18 (12-78) U/L Alkaline Phosphatase 84 (46-116) U/L Creatine Kinase 29 (26-192) U/L Total Protein 6.5 (6.4-8.2) g/dL Albumin 3.1 L (3.4-5.0) g/dL Globulin 3.4 (2.3-3.5) g/dL Albumin/Globulin Ratio 0.9 L (1.2-2.2) Urine Color Yellow (YELLOW) Urine Appearance Cloudy A (CLEAR) Urine pH 6.0 (5.0-8.0) Ur Specific [place] 1.020 (1.008-1.030) Urine Protein Negative (NEGATIVE) mg/dL Urine Glucose (UA) Negative (NEGATIVE) mg/dL Urine Ketones 15 H (NEGATIVE) mg/dL Urine Occult Blood Negative (NEGATIVE) Urine Nitrite Positive H (NEGATIVE) Urine Bilirubin Negative (NEGATIVE) Urine Urobilinogen 1.0 (0.2-1.0) EU/dL Ur Leukocyte Esterase Negative (NEGATIVE) Urine RBC 0-5 (0-5) Urine WBC 0-5 (0-5) Ur Epithelial Cells Not seen Amorphous Sediment Not seen Urine Bacteria Many Urine Mucus Not seen SARS CoV-2 RNA Rapid ANDREW 09/14/20 09/15/20 09/15/20 Range/Units 20:52 04:53 04:53 WBC 6.9 (4.5-11.0) K/uL RBC 3.52 (3.30-5.50) M/uL Hgb 11.0 L (12.0-15.0) g/dL Hct 34.2 L (36.0-48.0) % MCV 97 (80-98) fL MCH 31 (27-31) pg MCHC 32 (32-36) % Plt Count 155 (150-400) K/uL Neut % (Auto) 52 (36-66) % Lymph % (Auto) 34 (24-44) % [place] % (Auto) 12 H (2-6) % Eos % (Auto) 2 (2-4) % Baso % (Auto) 0 (0-1) % Sodium 143 (140-148) mmol/L Potassium 4.3 (3.6-5.2) mmol/L Chloride 108 (100-108) mmol/L Carbon Dioxide 26 (21-32) mmol/L Anion Gap 8.7 (5.0-14.0) mmol/L BUN 27 H (7-18) mg/dL Creatinine 1.3 H (0.6-1.0) mg/dL Est Cr Clr Drug Dosing 27.82 mL/min Estimated GFR (MDRD) 39 L (>60) Glucose 97 (74-106) mg/dL Calcium 9.0 (8.5-10.1) mg/dL Magnesium 2.0 (1.8-2.4) mg/dL Total Bilirubin (0.2-1.0) mg/dL AST (15-37) U/L ALT (12-78) U/L Alkaline Phosphatase (46-116) U/L Creatine Kinase (26-192) U/L Total Protein (6.4-8.2) g/dL Albumin (3.4-5.0) g/dL Globulin (2.3-3.5) g/dL Albumin/Globulin Ratio (1.2-2.2) Urine Color (YELLOW) Urine Appearance (CLEAR) Urine pH (5.0-8.0) Ur Specific [place] (1.008-1.030) Urine Protein (NEGATIVE) mg/dL Urine Glucose (UA) (NEGATIVE) mg/dL Urine Ketones (NEGATIVE) mg/dL Urine Occult Blood (NEGATIVE) Urine Nitrite (NEGATIVE) Urine Bilirubin (NEGATIVE) Urine Urobilinogen (0.2-1.0) EU/dL Ur Leukocyte Esterase (NEGATIVE) Urine RBC (0-5) Urine WBC (0-5) Ur Epithelial Cells Amorphous Sediment Urine Bacteria Urine Mucus SARS CoV-2 RNA Rapid ANDREW Negative Result Diagrams: 09/15/20 04:53 09/15/20 04:53 Timoteo Results Last 24 hrs: Microbiology 09/14/20 11:54 Urine Culture - Preliminary Urine, Quick Cath (In-Out) Sepsis Event Note - Evaluation Sepsis Screening Result: No Definite Risk - Focused Exam Vital Signs: Vital Signs Temp Temp Pulse Resp BP Pulse Ox 09/15/20 03:01 96.9 F 75 16 145/45 H 94 L 09/14/20 22:36 98.3 F 92 17 133/45 L 95 09/14/20 20:13 96.9 F 90 16 122/41 L 96 Consult PN Assessment/Plan POD#: 0 Procedures: Procedures AGENT NOS ASSAY W/OPTIC (10/09/14) ASSAY OF LACTIC ACID (05/03/20) BREAST TOMOSYNTHESIS BI (10/14/18) BX BREAST PERCUT W/IMAGE (07/13/13) C DIFF AMPLIFIED PROBE (10/09/14) CARDIOVASCULAR STRESS TEST (08/11/13) CARDIOVASCULAR STRESS TEST (08/11/13) COLONOSCOPY W/LESION REMOVAL (08/02/13) COMP SCREEN MAMMOGRAM ADD-ON (11/01/15) COMPLETE CBC W/AUTO DIFF WBC (05/03/20) COMPREHEN METABOLIC PANEL (05/03/20) CT ABD & PELV W/CONTRAST (06/26/17) CT HEAD/BRAIN W/O DYE (07/21/18) CULTURE AEROBIC IDENTIFY (10/09/14) CULTURE SCREEN ONLY (11/13/17) ECHO GUIDE FOR BIOPSY (07/13/13) EGD BIOPSY SINGLE/MULTIPLE (11/13/17) EMERGENCY DEPT VISIT (05/03/20) EMERGENCY DEPT VISIT (11/06/16) EMERGENCY DEPT VISIT (11/06/16) GLUCOSE BLOOD TEST (10/09/14) HT MUSCLE IMAGE SPECT MULT (08/11/13) HYDRATE IV INFUSION ADD-ON (10/09/14) IMMUNOHISTO ANTB 1ST STAIN (07/13/13) METABOLIC PANEL TOTAL CA (10/09/14) MICROBE SUSCEPTIBLE TIMOTEO (05/03/20) MRI BRAIN STEM W/O DYE (11/27/16) PT EVALUATION (10/09/14) RA TRACER ID OF SENTINL NODE (08/16/13) REAGENT STRIP/BLOOD GLUCOSE (08/16/13) ROUTINE VENIPUNCTURE (05/03/20) SCR MAMMO BI INCL CAD (10/14/18) SELF CARE MNGMENT TRAINING (10/09/14) STOOL CULTR AEROBIC BACT EA (10/09/14) THER/PROPH/DIAG INJ IV PUSH (10/09/14) THER/PROPH/DIAG INJ SC/IM (10/09/14) THERAPEUTIC ACTIVITIES (10/09/14) TISSUE EXAM BY PATHOLOGIST (08/16/13) TISSUE EXAM BY PATHOLOGIST (08/16/13) TISSUE EXAM BY PATHOLOGIST (08/02/13) TREAT FINGER DISLOCATION (11/06/16) TREAT FINGER FRACTURE EACH (11/06/16) TUMOR IMMUNOHISTOCHEM/MANUAL (07/13/13) URINALYSIS AUTO W/SCOPE (05/03/20) URINE BACTERIA CULTURE (05/03/20) URINE CULTURE/COLONY COUNT (05/03/20) US EXAM BREAST(S) (06/21/13) X-RAY EXAM CHEST 1 VIEW (05/03/20) X-RAY EXAM OF FINGER(S) (11/06/16) X-RAY EXAM OF HAND (11/11/16) (1) Perineal mass in female SNOMED Code(s): 149120383, 947543271 Code(s): N90.89 - [facility] NONINFLAMMATORY DISORDERS OF VULVA AND PERINEUM Current Visit: Yes Problem List Initiated/Reviewed/Updated: Yes My Orders Last 24 Hours: My Active Orders 09/15/20 07:03 Verify Patient Consent Obtain [RC] ASDIRECTED Plan: Plan: Biopsy of Mass Right Labia - IV Sedation - 09/15/2020 - Case to Follow Gualberto Velasco MD Thank you for this consultation. Rowan GUZMAN C
[2020-09-15] MEDS: OMEPRAZOLE 40MG CAP (PTOM) PO SCH (08:32)
[2020-09-15] MEDS: LEVOTHYROXINE 50 MCG PO SCH (08:33)
[2020-09-15] MEDS: Aspirin 81 MG Tab.Chew PO SCH (08:34)
[2020-09-15] MEDS: Enoxaparin 30 MG/0.3 ML Syringe SUBCUT SCH (08:35)
[2020-09-15] MEDS: CITALOPRAM 40MG TAB (PTOM) PO SCH (08:36)
[2020-09-15] MEDS ORDERED: Non-Formulary Medication 1 Each (Omeprazole [Omeprazole] 40 MG) PO SCH (09:00)
[2020-09-15] MEDS ORDERED: Non-Formulary Medication 1 Each (Citalopram Hydrobromide [Celexa] 40 MG) PO SCH (09:00)
[2020-09-15] MEDS ORDERED: Lidocaine 1% with EPINEPHrine 1:100,000 50 ML MDV INJECT ONE (09:00)
--- NOTE | 2020-09-15 10:38 | PCM.PN ---
- General Info Date of Service: 09/15/20 Subjective Update: Ms. Stephens has been stable since admission yesterday. She remains confused and is unable to provide meaningful information concerning symptoms or review of systems. Vital signs have been good and she has remained afebrile. She has been seen and evaluated by Dr. Velasco with plan for biopsy of the perineal lesion today. - Patient Data Vitals - Most Recent: Last Vital Signs Temp 96.9 F 09/15/20 08:10 Pulse 65 09/15/20 08:10 Resp 16 09/15/20 03:01 BP 149/46 H 09/15/20 08:10 Pulse Ox 97 09/15/20 08:10 Weight - Most Recent: 123 lb 12.8 oz I&O - Last 24 Hours: Intake & Output 09/14/20 09/15/20 09/15/20 22:59 06:59 14:59 Intake Total 200 300 90 Balance 200 300 90 Lab Results Last 24 Hours: Laboratory Results - last 24 hr 09/14/20 09/14/20 09/14/20 Range/Units 10:27 11:25 20:52 WBC (4.5-11.0) K/uL RBC (3.30-5.50) M/uL Hgb (12.0-15.0) g/dL Hct (36.0-48.0) % MCV (80-98) fL MCH (27-31) pg MCHC (32-36) % Plt Count (150-400) K/uL Neut % (Auto) (36-66) % Lymph % (Auto) (24-44) % [place] % (Auto) (2-6) % Eos % (Auto) (2-4) % Baso % (Auto) (0-1) % Sodium 141 (140-148) mmol/L Potassium 4.3 (3.6-5.2) mmol/L Chloride 104 (100-108) mmol/L Carbon Dioxide 26 (21-32) mmol/L Anion Gap 10.7 (5.0-14.0) mmol/L BUN 25 H (7-18) mg/dL Creatinine 1.1 H (0.6-1.0) mg/dL Est Cr Clr Drug Dosing 32.75 mL/min Estimated GFR (MDRD) 47 L (>60) Glucose 88 (74-106) mg/dL Calcium 9.2 (8.5-10.1) mg/dL Magnesium (1.8-2.4) mg/dL Total Bilirubin 1.4 H (0.2-1.0) mg/dL AST 16 (15-37) U/L ALT 18 (12-78) U/L Alkaline Phosphatase 84 (46-116) U/L Creatine Kinase 29 (26-192) U/L Total Protein 6.5 (6.4-8.2) g/dL Albumin 3.1 L (3.4-5.0) g/dL Globulin 3.4 (2.3-3.5) g/dL Albumin/Globulin Ratio 0.9 L (1.2-2.2) Urine Color Yellow (YELLOW) Urine Appearance Cloudy A (CLEAR) Urine pH 6.0 (5.0-8.0) Ur Specific [place] 1.020 (1.008-1.030) Urine Protein Negative (NEGATIVE) mg/dL Urine Glucose (UA) Negative (NEGATIVE) mg/dL Urine Ketones 15 H (NEGATIVE) mg/dL Urine Occult Blood Negative (NEGATIVE) Urine Nitrite Positive H (NEGATIVE) Urine Bilirubin Negative (NEGATIVE) Urine Urobilinogen 1.0 (0.2-1.0) EU/dL Ur Leukocyte Esterase Negative (NEGATIVE) Urine RBC 0-5 (0-5) Urine WBC 0-5 (0-5) Ur Epithelial Cells Not seen Amorphous Sediment Not seen Urine Bacteria Many Urine Mucus Not seen SARS CoV-2 RNA Rapid ANDREW Negative 09/15/20 09/15/20 Range/Units 04:53 04:53 WBC 6.9 (4.5-11.0) K/uL RBC 3.52 (3.30-5.50) M/uL Hgb 11.0 L (12.0-15.0) g/dL Hct 34.2 L (36.0-48.0) % MCV 97 (80-98) fL MCH 31 (27-31) pg MCHC 32 (32-36) % Plt Count 155 (150-400) K/uL Neut % (Auto) 52 (36-66) % Lymph % (Auto) 34 (24-44) % [place] % (Auto) 12 H (2-6) % Eos % (Auto) 2 (2-4) % Baso % (Auto) 0 (0-1) % Sodium 143 (140-148) mmol/L Potassium 4.3 (3.6-5.2) mmol/L Chloride 108 (100-108) mmol/L Carbon Dioxide 26 (21-32) mmol/L Anion Gap 8.7 (5.0-14.0) mmol/L BUN 27 H (7-18) mg/dL Creatinine 1.3 H (0.6-1.0) mg/dL Est Cr Clr Drug Dosing 27.82 mL/min Estimated GFR (MDRD) 39 L (>60) Glucose 97 (74-106) mg/dL Calcium 9.0 (8.5-10.1) mg/dL Magnesium 2.0 (1.8-2.4) mg/dL Total Bilirubin (0.2-1.0) mg/dL AST (15-37) U/L ALT (12-78) U/L Alkaline Phosphatase (46-116) U/L Creatine Kinase (26-192) U/L Total Protein (6.4-8.2) g/dL Albumin (3.4-5.0) g/dL Globulin (2.3-3.5) g/dL Albumin/Globulin Ratio (1.2-2.2) Urine Color (YELLOW) Urine Appearance (CLEAR) Urine pH (5.0-8.0) Ur Specific [place] (1.008-1.030) Urine Protein (NEGATIVE) mg/dL Urine Glucose (UA) (NEGATIVE) mg/dL Urine Ketones (NEGATIVE) mg/dL Urine Occult Blood (NEGATIVE) Urine Nitrite (NEGATIVE) Urine Bilirubin (NEGATIVE) Urine Urobilinogen (0.2-1.0) EU/dL Ur Leukocyte Esterase (NEGATIVE) Urine RBC (0-5) Urine WBC (0-5) Ur Epithelial Cells Amorphous Sediment Urine Bacteria Urine Mucus SARS CoV-2 RNA Rapid ANDREW Timoteo Results Last 24 Hours: Microbiology 09/14/20 11:54 Urine Culture - Preliminary Urine, Quick Cath (In-Out) Med Orders - Current: Current Medications Acetaminophen (Tylenol) 650 mg PO Q4H PRN PRN Reason: Pain (Mild 1-3)/fever Aspirin (Aspirin) 81 mg PO DAILY [facility] Last Admin: 09/15/20 08:34 Dose: 81 mg Documented by: Atorvastatin Calcium (Lipitor) 10 mg PO BEDTIME [facility] Enoxaparin Sodium (Lovenox) 30 mg SUBCUT DAILY [facility] Last Admin: 09/15/20 08:35 Dose: 30 mg Documented by: Haloperidol (Haldol) 1 mg PO Q2H PRN PRN Reason: Agitation Ceftriaxone Sodium 1 gm/ (Sodium Chloride) 50 mls @ 100 mls/hr IV Q24H [facility] Last Admin: 09/14/20 14:49 Dose: 100 mls/hr Documented by: Iopamidol (Isovue-300 (61%)) 100 ml IV . DIRECTED PRN PRN Reason: RADIOLOGY EXAM Stop: 09/15/20 15:20 Last Admin: 09/14/20 18:05 Dose: 100 ml Documented by: Levothyroxine Sodium (Synthroid) 50 mcg PO ACBREAKFAST [facility] Last Admin: 09/15/20 08:33 Dose: 50 mcg Documented by: Melatonin (Melatonin) 9 mg PO BEDTIME [facility] Last Admin: 09/14/20 20:20 Dose: 9 mg Documented by: Ondansetron HCl (Zofran) 4 mg IV Q4H PRN PRN Reason: Nausea/Vomiting Omeprazole 40mg Cap ((Ptom)) 0 each PO ACBREAKFAST [facility] Last Admin: 09/15/20 08:32 Dose: 1 each Documented by: Citalopram 40mg Tab ((Ptom)) 0 each PO DAILY [facility] Last Admin: 09/15/20 08:36 Dose: 1 each Documented by: Polyethylene Glycol (Miralax) 17 gm PO DAILY PRN PRN Reason: Constipation Sodium Chloride (Saline Flush) 10 ml FLUSH ASDIRECTED PRN PRN Reason: Keep Vein Open Discontinued Medications Enoxaparin Sodium (Lovenox) 40 mg SUBCUT Q24H [facility] Last Admin: 09/14/20 17:24 Dose: Not Given Documented by: Sodium Chloride (Normal Saline) 1,000 mls @ 75 mls/hr IV ASDIRECTED [facility] Last Admin: 09/14/20 14:49 Dose: 75 mls/hr Documented by: Lidocaine/Epinephrine (Xylocaine 1% With Epinephrine 1:100,000) 50 ml INJECT ONETIME ONE Stop: 09/15/20 09:01 Nitrofurantoin Macrocrystals (Macrobid) 100 mg PO ONETIME ONE Stop: 09/14/20 11:52 Last Admin: 09/14/20 13:12 Dose: 100 mg Documented by: Sodium Chloride (Saline Flush) 10 ml FLUSH ONETIME ONE Stop: 09/14/20 15:20 Last Admin: 09/14/20 16:20 Dose: 10 ml Documented by: - Exam Quality Assessment: DVT Prophylaxis General: Alert, Cooperative, No Acute Distress. No: Oriented Lungs: Clear to Auscultation, Normal Respiratory Effort Cardiovascular: Regular Rate, Regular Rhythm, No Murmurs GI/Abdominal Exam: Soft, Non-Tender, No Organomegaly, No Distention Extremities: Non-Tender, No Pedal Edema - Patient Data Lab Results Last 24 hrs: Laboratory Results - last 24 hr 09/14/20 09/14/20 09/14/20 Range/Units 10:27 11:25 20:52 WBC (4.5-11.0) K/uL RBC (3.30-5.50) M/uL Hgb (12.0-15.0) g/dL Hct (36.0-48.0) % MCV (80-98) fL MCH (27-31) pg MCHC (32-36) % Plt Count (150-400) K/uL Neut % (Auto) (36-66) % Lymph % (Auto) (24-44) % [place] % (Auto) (2-6) % Eos % (Auto) (2-4) % Baso % (Auto) (0-1) % Sodium 141 (140-148) mmol/L Potassium 4.3 (3.6-5.2) mmol/L Chloride 104 (100-108) mmol/L Carbon Dioxide 26 (21-32) mmol/L Anion Gap 10.7 (5.0-14.0) mmol/L BUN 25 H (7-18) mg/dL Creatinine 1.1 H (0.6-1.0) mg/dL Est Cr Clr Drug Dosing 32.75 mL/min Estimated GFR (MDRD) 47 L (>60) Glucose 88 (74-106) mg/dL Calcium 9.2 (8.5-10.1) mg/dL Magnesium (1.8-2.4) mg/dL Total Bilirubin 1.4 H (0.2-1.0) mg/dL AST 16 (15-37) U/L ALT 18 (12-78) U/L Alkaline Phosphatase 84 (46-116) U/L Creatine Kinase 29 (26-192) U/L Total Protein 6.5 (6.4-8.2) g/dL Albumin 3.1 L (3.4-5.0) g/dL Globulin 3.4 (2.3-3.5) g/dL Albumin/Globulin Ratio 0.9 L (1.2-2.2) Urine Color Yellow (YELLOW) Urine Appearance Cloudy A (CLEAR) Urine pH 6.0 (5.0-8.0) Ur Specific [place] 1.020 (1.008-1.030) Urine Protein Negative (NEGATIVE) mg/dL Urine Glucose (UA) Negative (NEGATIVE) mg/dL Urine Ketones 15 H (NEGATIVE) mg/dL Urine Occult Blood Negative (NEGATIVE) Urine Nitrite Positive H (NEGATIVE) Urine Bilirubin Negative (NEGATIVE) Urine Urobilinogen 1.0 (0.2-1.0) EU/dL Ur Leukocyte Esterase Negative (NEGATIVE) Urine RBC 0-5 (0-5) Urine WBC 0-5 (0-5) Ur Epithelial Cells Not seen Amorphous Sediment Not seen Urine Bacteria Many Urine Mucus Not seen SARS CoV-2 RNA Rapid ANDREW Negative 09/15/20 09/15/20 Range/Units 04:53 04:53 WBC 6.9 (4.5-11.0) K/uL RBC 3.52 (3.30-5.50) M/uL Hgb 11.0 L (12.0-15.0) g/dL Hct 34.2 L (36.0-48.0) % MCV 97 (80-98) fL MCH 31 (27-31) pg MCHC 32 (32-36) % Plt Count 155 (150-400) K/uL Neut % (Auto) 52 (36-66) % Lymph % (Auto) 34 (24-44) % [place] % (Auto) 12 H (2-6) % Eos % (Auto) 2 (2-4) % Baso % (Auto) 0 (0-1) % Sodium 143 (140-148) mmol/L Potassium 4.3 (3.6-5.2) mmol/L Chloride 108 (100-108) mmol/L Carbon Dioxide 26 (21-32) mmol/L Anion Gap 8.7 (5.0-14.0) mmol/L BUN 27 H (7-18) mg/dL Creatinine 1.3 H (0.6-1.0) mg/dL Est Cr Clr Drug Dosing 27.82 mL/min Estimated GFR (MDRD) 39 L (>60) Glucose 97 (74-106) mg/dL Calcium 9.0 (8.5-10.1) mg/dL Magnesium 2.0 (1.8-2.4) mg/dL Total Bilirubin (0.2-1.0) mg/dL AST (15-37) U/L ALT (12-78) U/L Alkaline Phosphatase (46-116) U/L Creatine Kinase (26-192) U/L Total Protein (6.4-8.2) g/dL Albumin (3.4-5.0) g/dL Globulin (2.3-3.5) g/dL Albumin/Globulin Ratio (1.2-2.2) Urine Color (YELLOW) Urine Appearance (CLEAR) Urine pH (5.0-8.0) Ur Specific [place] (1.008-1.030) Urine Protein (NEGATIVE) mg/dL Urine Glucose (UA) (NEGATIVE) mg/dL Urine Ketones (NEGATIVE) mg/dL Urine Occult Blood (NEGATIVE) Urine Nitrite (NEGATIVE) Urine Bilirubin (NEGATIVE) Urine Urobilinogen (0.2-1.0) EU/dL Ur Leukocyte Esterase (NEGATIVE) Urine RBC (0-5) Urine WBC (0-5) Ur Epithelial Cells Amorphous Sediment Urine Bacteria Urine Mucus SARS CoV-2 RNA Rapid ANDREW Result Diagrams: 09/15/20 04:53 09/15/20 04:53 Timoteo Results Last 24 hrs: Microbiology 09/14/20 11:54 Urine Culture - Preliminary Urine, Quick Cath (In-Out) Sepsis Event Note - Evaluation Sepsis Screening Result: No Definite Risk - Focused Exam Vital Signs: Vital Signs Temp Pulse Resp BP Pulse Ox 09/15/20 08:10 96.9 F 65 149/46 H 97 09/15/20 03:01 96.9 F 75 16 145/45 H 94 L - Problem List Review Problem List Initiated/Reviewed/Updated: Yes - My Orders Last 24 Hours: My Active Orders 09/14/20 Lunch Regular Diet [DIET] 09/14/20 14:00 cefTRIAXone [Rocephin] 1 gm Sodium Chloride 0.9% [Normal Saline] 50 ml IV Q24H 09/14/20 14:39 Acetaminophen [TylenoL] 650 mg PO Q4H PRN Ondansetron [Zofran] 4 mg IV Q4H PRN Sodium Chloride 0.9% [Saline Flush] 10 ml FLUSH ASDIRECTED PRN haloperidoL [Haldol] 1 mg PO Q2H PRN polyethylene glycoL 3350 [MiraLAX] 17 gm PO DAILY PRN 09/14/20 14:39 Patient Status [ADT] Routine Ambulate [RC] QID Height and Weight [RC] 0500 Intake and Output [RC] QSHIFT Notify Provider Vital Signs [RC] ASDIRECTED Oxygen Therapy [RC] PRN Peripheral IV Care [RC] . DIRECTED Up With Assistance [RC] ASDIRECTED Up to Chair [RC] QID VTE/DVT Education [RC] Per Unit Routine Vital Signs [RC] Q4H PT Evaluation and Treatment [CONS] Routine Peripheral IV Insertion Adult [OM.PC] Routine 09/14/20 15:19 Iopamidol [Isovue-300 (61%)] 100 ml IV . DIRECTED PRN 09/14/20 16:33 Resuscitation Status Routine 09/14/20 16:36 Consult to Physician [CONS] Routine 09/14/20 16:37 Notify Provider Consults [RC] ASDIRECTED 09/14/20 21:00 Melatonin 9 mg PO BEDTIME 09/15/20 08:00 Levothyroxine [Synthroid] 50 mcg PO ACBREAKFAST Patient's Own Medication [Ptom] 0 each PO ACBREAKFAST 09/15/20 09:00 Aspirin 81 mg PO DAILY Enoxaparin [Lovenox] 30 mg SUBCUT DAILY Patient's Own Medication [Ptom] 0 each PO DAILY 09/15/20 09:37 COVID-19/FLU A+B/RSV [MOLEC] Urgent 09/15/20 10:35 Convert IV to Saline Lock [OM.PC] Routine 09/15/20 21:00 atorvaSTATin [Lipitor] 10 mg PO BEDTIME 09/16/20 05:00 BASIC METABOLIC PANEL,BMP [CHEM] Timed - Plan Plan:: ASSESSMENT AND PLAN WEAKNESS-no obvious etiology identified, CT scan of the head showed no new infarcts or bleeding. -Physical therapy consult PROGRESSIVE DEMENTIA-this has become progressively worse over the past several months, is no longer able to care for her at home -Proceed with fpc placement -Melatonin 9 mg p.o. nightly POSSIBLE UTI-urinalysis does show some bacteria and positive nitrites but no white cells. 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 DISPOSITION-anticipate discharge to home after the hospital stay. PRIMARY CARE PROVIDER-Chris Ojeda
--- NOTE | 2020-09-15 11:55 | CR ---
Ankle Min 3V Lt CLINICAL HISTORY: Pain with movement FINDINGS: The soft tissues are normal. No acute fracture or dislocation is noted. Ankle mortise is intact. Articular surfaces are smooth. The bones are osteopenic. There is calcaneal spurring. There appears to be some pes planus of the foot is not completely imaged. Impression: No fracture or subluxation Osteopenia Calcaneal spurring Pes planus
[2020-09-15 13:44] LABS: CORONAVIRUS COVID-19 NAA NEGATIVE (NEGATIVE)
[2020-09-15] MEDS: Bacitracin Oint 28.35 GM Tube TOP SCH ×2 (15:08→21:47)
[2020-09-15] MEDS: cefTRIAXone 1 GM in Sodium Chloride 0.9% 50 ML IV SCH (15:09)
[2020-09-15] MEDS: atorvaSTATin 10 MG Tab (PTOM) PO SCH (21:46)
[2020-09-15] MEDS: Melatonin 3 MG Tab PO SCH (21:47)
[2020-09-16] MEDS: LEVOTHYROXINE 50 MCG PO SCH (07:54)
[2020-09-16] MEDS: OMEPRAZOLE 40MG CAP (PTOM) PO SCH (07:55)
[2020-09-16] MEDS ORDERED: Potassium Chloride 20 MEQ Tab.ER PO ONE (08:45)
--- NOTE | 2020-09-16 09:34 | PCM.PN ---
- General Info Date of Service: 09/16/20 Subjective Update: Ms. Stephens has been stable since yesterday. Biopsy of perineal mass performed yesterday by Dr. Velasco. She has been hemodynamically stable and afebrile. She is unable to provide meaningful history concerning symptoms or review of systems because of her dementia and underlying confusion. - Patient Data Vitals - Most Recent: Last Vital Signs Temp 97.6 F 09/15/20 22:52 Pulse 85 09/15/20 22:52 Resp 15 09/16/20 03:00 BP 144/50 H 09/15/20 22:52 Pulse Ox 95 09/15/20 22:52 Weight - Most Recent: 123 lb 12.809 oz I&O - Last 24 Hours: Intake & Output 09/15/20 09/16/20 09/16/20 22:59 06:59 14:59 Intake Total 360 Balance 360 Lab Results Last 24 Hours: Laboratory Results - last 24 hr 09/15/20 09/16/20 Range/Units 09:37 05:40 Sodium 143 (140-148) mmol/L Potassium 3.6 (3.6-5.2) mmol/L Chloride 109 H (100-108) mmol/L Carbon Dioxide 26 (21-32) mmol/L Anion Gap 11.6 (5.0-14.0) mmol/L BUN 26 H (7-18) mg/dL Creatinine 1.1 H (0.6-1.0) mg/dL Est Cr Clr Drug Dosing 33.11 mL/min Estimated GFR (MDRD) 47 L (>60) Glucose 109 H (74-106) mg/dL Calcium 8.6 (8.5-10.1) mg/dL Influenza Type A RNA Negative (NEGATIVE) RSV RNA (INAAT) Negative (NEGATIVE) Influenza Type B RNA Negative (NEGATIVE) SARS-CoV-2 RNA (ANDREW) Negative (NEGATIVE) Timoteo Results Last 24 Hours: Microbiology 09/14/20 11:54 Urine Culture - Final Urine, Quick Cath (In-Out) Escherichia Coli Med Orders - Current: Current Medications Acetaminophen (Tylenol) 650 mg PO Q4H PRN PRN Reason: Pain (Mild 1-3)/fever Aspirin (Aspirin) 81 mg PO DAILY [facility] Last Admin: 09/15/20 08:34 Dose: 81 mg Documented by: Atorvastatin Calcium (Lipitor) 10 mg PO BEDTIME [facility] Last Admin: 09/15/20 21:46 Dose: 10 mg Documented by: Bacitracin (Bacitracin Oint) 0 gm TOP BID [facility] Last Admin: 09/15/20 21:47 Dose: 1 applic Documented by: Enoxaparin Sodium (Lovenox) 30 mg SUBCUT DAILY [facility] Last Admin: 09/15/20 08:35 Dose: 30 mg Documented by: Haloperidol (Haldol) 1 mg PO Q2H PRN PRN Reason: Agitation Ceftriaxone Sodium 1 gm/ (Sodium Chloride) 50 mls @ 100 mls/hr IV Q24H [facility] Last Admin: 09/15/20 15:09 Dose: 100 mls/hr Documented by: Levothyroxine Sodium (Synthroid) 50 mcg PO ACBREAKFAST [facility] Last Admin: 09/16/20 07:54 Dose: 50 mcg Documented by: Melatonin (Melatonin) 9 mg PO BEDTIME [facility] Last Admin: 09/15/20 21:47 Dose: 9 mg Documented by: Ondansetron HCl (Zofran) 4 mg IV Q4H PRN PRN Reason: Nausea/Vomiting Omeprazole 40mg Cap ((Ptom)) 0 each PO ACBREAKFAST [facility] Last Admin: 09/16/20 07:55 Dose: 1 each Documented by: Citalopram 40mg Tab ((Ptom)) 0 each PO DAILY [facility] Last Admin: 09/15/20 08:36 Dose: 1 each Documented by: Polyethylene Glycol (Miralax) 17 gm PO DAILY PRN PRN Reason: Constipation Sodium Chloride (Saline Flush) 10 ml FLUSH ASDIRECTED PRN PRN Reason: Keep Vein Open Discontinued Medications Enoxaparin Sodium (Lovenox) 40 mg SUBCUT Q24H [facility] Last Admin: 09/14/20 17:24 Dose: Not Given Documented by: Sodium Chloride (Normal Saline) 1,000 mls @ 75 mls/hr IV ASDIRECTED [facility] Last Admin: 09/14/20 14:49 Dose: 75 mls/hr Documented by: Iopamidol (Isovue-300 (61%)) 100 ml IV . DIRECTED PRN PRN Reason: RADIOLOGY EXAM Stop: 09/15/20 15:20 Last Admin: 09/14/20 18:05 Dose: 100 ml Documented by: Lidocaine/Epinephrine (Xylocaine 1% With Epinephrine 1:100,000) 50 ml INJECT ONETIME ONE Stop: 09/15/20 09:01 Last Admin: 09/15/20 13:20 Dose: 50 ml Documented by: Nitrofurantoin Macrocrystals (Macrobid) 100 mg PO ONETIME ONE Stop: 09/14/20 11:52 Last Admin: 09/14/20 13:12 Dose: 100 mg Documented by: Potassium Chloride (Klor-Con M20) 40 meq PO ONETIME ONE Stop: 09/16/20 08:46 Sodium Chloride (Saline Flush) 10 ml FLUSH ONETIME ONE Stop: 09/14/20 15:20 Last Admin: 09/14/20 16:20 Dose: 10 ml Documented by: - Exam Quality Assessment: DVT Prophylaxis General: Alert, Cooperative, No Acute Distress. No: Oriented Lungs: Clear to Auscultation, Normal Respiratory Effort Cardiovascular: Regular Rate, Regular Rhythm, No Murmurs GI/Abdominal Exam: Soft, Non-Tender, No Organomegaly, No Distention Extremities: Non-Tender, No Pedal Edema - Patient Data Lab Results Last 24 hrs: Laboratory Results - last 24 hr 09/15/20 09/16/20 Range/Units 09:37 05:40 Sodium 143 (140-148) mmol/L Potassium 3.6 (3.6-5.2) mmol/L Chloride 109 H (100-108) mmol/L Carbon Dioxide 26 (21-32) mmol/L Anion Gap 11.6 (5.0-14.0) mmol/L BUN 26 H (7-18) mg/dL Creatinine 1.1 H (0.6-1.0) mg/dL Est Cr Clr Drug Dosing 33.11 mL/min Estimated GFR (MDRD) 47 L (>60) Glucose 109 H (74-106) mg/dL Calcium 8.6 (8.5-10.1) mg/dL Influenza Type A RNA Negative (NEGATIVE) RSV RNA (INAAT) Negative (NEGATIVE) Influenza Type B RNA Negative (NEGATIVE) SARS-CoV-2 RNA (ANDREW) Negative (NEGATIVE) Result Diagrams: 09/15/20 04:53 09/16/20 05:40 Timoteo Results Last 24 hrs: Microbiology 09/14/20 11:54 Urine Culture - Final Urine, Quick Cath (In-Out) Escherichia Coli Sepsis Event Note - Evaluation Sepsis Screening Result: No Definite Risk - Focused Exam Vital Signs: Vital Signs Temp Pulse Resp BP Pulse Ox 09/16/20 03:00 15 09/15/20 22:52 97.6 F 85 18 144/50 H 95 - Problem List Review Problem List Initiated/Reviewed/Updated: Yes - My Orders Last 24 Hours: My Active Orders 09/15/20 09:00 Aspirin 81 mg PO DAILY Enoxaparin [Lovenox] 30 mg SUBCUT DAILY Patient's Own Medication [Ptom] 0 each PO DAILY 09/15/20 10:35 Convert IV to Saline Lock [OM.PC] Routine 09/15/20 21:00 atorvaSTATin [Lipitor] 10 mg PO BEDTIME - Plan Plan:: ASSESSMENT AND PLAN WEAKNESS-no obvious etiology identified, CT scan of the head showed no new infarcts or bleeding. -Physical therapy consult PROGRESSIVE DEMENTIA-this has become progressively worse over the past several months, is no longer able to care for her at home -Proceed with fpc placement -Melatonin 9 mg p.o. nightly UTI-culture positive for E. 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 DISPOSITION-anticipate discharge to home after the hospital stay. PRIMARY CARE PROVIDER-Chris Ojeda
[2020-09-16] MEDS: Aspirin 81 MG Tab.Chew PO SCH (10:02)
[2020-09-16] MEDS: Bacitracin Oint 28.35 GM Tube TOP SCH ×2 (10:02→20:50)
[2020-09-16] MEDS: Enoxaparin 30 MG/0.3 ML Syringe SUBCUT SCH (10:03)
[2020-09-16] MEDS: CITALOPRAM 40MG TAB (PTOM) PO SCH (10:04)
[2020-09-16] MEDS: cefTRIAXone 1 GM in Sodium Chloride 0.9% 50 ML IV SCH (13:49)
[2020-09-16] MEDS: atorvaSTATin 10 MG Tab (PTOM) PO SCH (20:50)
[2020-09-16] MEDS: Melatonin 3 MG Tab PO SCH (20:50)
[2020-09-17] MEDS: OMEPRAZOLE 40MG CAP (PTOM) PO SCH (07:47)
[2020-09-17] MEDS: LEVOTHYROXINE 50 MCG PO SCH (07:48)
[2020-09-17] MEDS ORDERED: Enoxaparin 40 MG/0.4 ML Syringe SUBCUT SCH (09:00)
[2020-09-17] MEDS: Bacitracin Oint 28.35 GM Tube TOP SCH ×2 (09:11→21:44)
[2020-09-17] MEDS: Aspirin 81 MG Tab.Chew PO SCH (09:11)
[2020-09-17] MEDS: CITALOPRAM 40MG TAB (PTOM) PO SCH (09:12)
--- NOTE | 2020-09-17 10:59 | PCM.PN ---
- General Info Date of Service: 09/17/20 Subjective Update: Ms. Stephens has been stable since yesterday. Vital signs have been good and she has been afebrile. Remains pleasantly confused consistent with her underlying dementia. Because of dementia is unable to provide meaningful history concerning symptoms or review of systems. - Patient Data Vitals - Most Recent: Last Vital Signs Temp 97.5 F 09/17/20 10:23 Pulse 79 09/17/20 10:23 Resp 16 09/17/20 10:23 BP 123/40 L 09/17/20 10:23 Pulse Ox 97 09/17/20 10:23 Weight - Most Recent: 118 lb 3.2 oz I&O - Last 24 Hours: Intake & Output 09/16/20 09/17/20 09/17/20 22:59 06:59 14:59 Intake Total 480 300 Balance 480 300 Tim[place]o Results Last 24 Hours: Microbiology 09/14/20 11:54 Urine Culture - Final Urine, Quick Cath (In-Out) Escherichia Coli Med Orders - Current: Current Medications Acetaminophen (Tylenol) 650 mg PO Q4H PRN PRN Reason: Pain (Mild 1-3)/fever Aspirin (Aspirin) 81 mg PO DAILY [facility] Last Admin: 09/17/20 09:11 Dose: 81 mg Documented by: Atorvastatin Calcium (Lipitor) 10 mg PO BEDTIME [facility] Last Admin: 09/16/20 20:50 Dose: 10 mg Documented by: Bacitracin (Bacitracin Oint) 0 gm TOP BID [facility] Last Admin: 09/17/20 09:11 Dose: 1 applic Documented by: Enoxaparin Sodium (Lovenox) 40 mg SUBCUT DAILY [facility] Last Admin: 09/17/20 09:11 Dose: 40 mg Documented by: Haloperidol (Haldol) 1 mg PO Q2H PRN PRN Reason: Agitation Ceftriaxone Sodium 1 gm/ (Sodium Chloride) 50 mls @ 100 mls/hr IV Q24H [facility] Last Admin: 09/16/20 13:49 Dose: 100 mls/hr Documented by: Levothyroxine Sodium (Synthroid) 50 mcg PO ACBREAKFAST [facility] Last Admin: 09/17/20 07:48 Dose: 50 mcg Documented by: Melatonin (Melatonin) 9 mg PO BEDTIME [facility] Last Admin: 09/16/20 20:50 Dose: 9 mg Documented by: Ondansetron HCl (Zofran) 4 mg IV Q4H PRN PRN Reason: Nausea/Vomiting Omeprazole 40mg Cap ((Ptom)) 0 each PO ACBREAKFAST [facility] Last Admin: 09/17/20 07:47 Dose: 1 each Documented by: Citalopram 40mg Tab ((Ptom)) 0 each PO DAILY [facility] Last Admin: 09/17/20 09:12 Dose: 1 each Documented by: Polyethylene Glycol (Miralax) 17 gm PO DAILY PRN PRN Reason: Constipation Sodium Chloride (Saline Flush) 10 ml FLUSH ASDIRECTED PRN PRN Reason: Keep Vein Open Discontinued Medications Enoxaparin Sodium (Lovenox) 40 mg SUBCUT Q24H [facility] Last Admin: 09/14/20 17:24 Dose: Not Given Documented by: Enoxaparin Sodium (Lovenox) 30 mg SUBCUT DAILY [facility] Last Admin: 09/16/20 10:03 Dose: 30 mg Documented by: Sodium Chloride (Normal Saline) 1,000 mls @ 75 mls/hr IV ASDIRECTED [facility] Last Admin: 09/14/20 14:49 Dose: 75 mls/hr Documented by: Iopamidol (Isovue-300 (61%)) 100 ml IV . DIRECTED PRN PRN Reason: RADIOLOGY EXAM Stop: 09/15/20 15:20 Last Admin: 09/14/20 18:05 Dose: 100 ml Documented by: Lidocaine/Epinephrine (Xylocaine 1% With Epinephrine 1:100,000) 50 ml INJECT ONETIME ONE Stop: 09/15/20 09:01 Last Admin: 09/15/20 13:20 Dose: 50 ml Documented by: Nitrofurantoin Macrocrystals (Macrobid) 100 mg PO ONETIME ONE Stop: 09/14/20 11:52 Last Admin: 09/14/20 13:12 Dose: 100 mg Documented by: Potassium Chloride (Klor-Con M20) 40 meq PO ONETIME ONE Stop: 09/16/20 08:46 Last Admin: 09/16/20 10:01 Dose: 40 meq Documented by: Sodium Chloride (Saline Flush) 10 ml FLUSH ONETIME ONE Stop: 09/14/20 15:20 Last Admin: 09/14/20 16:20 Dose: 10 ml Documented by: - Exam Quality Assessment: DVT Prophylaxis General: Alert, Cooperative, No Acute Distress. No: Oriented Lungs: Clear to Auscultation, Normal Respiratory Effort Cardiovascular: Regular Rate, Regular Rhythm, No Murmurs GI/Abdominal Exam: Soft, Non-Tender, No Organomegaly, No Distention Extremities: Non-Tender, No Pedal Edema - Patient Data Result Diagrams: 09/15/20 04:53 09/16/20 05:40 Timoteo Results Last 24 hrs: Microbiology 09/14/20 11:54 Urine Culture - Final Urine, Quick Cath (In-Out) Escherichia Coli Sepsis Event Note - Evaluation Sepsis Screening Result: No Definite Risk - Focused Exam Vital Signs: Vital Signs Temp Temp Pulse Resp BP BP Pulse Ox 09/17/20 10:23 97.5 F 79 16 123/40 L 97 09/17/20 07:42 96.3 F L 74 16 141/44 H 95 09/17/20 03:00 97.2 F 73 17 138/48 L 95 09/16/20 23:03 97.8 F 81 17 146/46 H 98 - Problem List Review Problem List Initiated/Reviewed/Updated: Yes - My Orders Last 24 Hours: My Active Orders 09/17/20 09:00 Enoxaparin [Lovenox] 40 mg SUBCUT DAILY - Plan Plan:: ASSESSMENT AND PLAN WEAKNESS-no obvious etiology identified, CT scan of the head showed no new infarcts or bleeding. -Physical therapy consult PROGRESSIVE DEMENTIA-this has become progressively worse over the past several months, is no longer able to care for her at home -Proceed with custodial placement -Melatonin 9 mg p.o. nightly UTI-culture positive for E. 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 DISPOSITION-anticipate discharge to home after the hospital stay. PRIMARY CARE PROVIDER-Chris Ojeda
--- NOTE | 2020-09-17 11:25 | PCM.DCSUM1 ---
Discharge Summary - Hospital Course Brief History: Ms. Stephens is an 85-year-old woman who was admitted through the emergency department with weakness and increased confusion at home secondary to progressive dementia and underlying urinary tract infection. 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 SNOMED Code(s): 173389113, 443684153 ICD Code: N90.89 - OTH NONINFLAMMATORY DISORDERS OF VULVA AND PERINEUM Status: Acute Current Visit: Yes (2) UTI (urinary tract infection), uncomplicated SNOMED Code(s): 09431278 ICD Code: N39.0 - URINARY TRACT INFECTION, SITE NOT SPECIFIED Status: Acute Current Visit: Yes (3) Weakness SNOMED Code(s): 01589984 ICD Code: R53.1 - WEAKNESS Status: Acute Current Visit: Yes (4) CKD (chronic kidney disease), stage III SNOMED Code(s): 488395942 ICD Code: N18.30 - CHRONIC KIDNEY DISEASE, STAGE 3 UNSPECIFIED Status: Chronic Current Visit: No (5) Dementia SNOMED Code(s): 72036108 ICD Code: F03.90 - UNSPECIFIED DEMENTIA WITHOUT BEHAVIORAL DISTURBANCE Status: Chronic Current Visit: No - Patient Summary/Data Consults: Consultations 09/14/20 14:39 PT Evaluation and Treatment [CONS] Routine Please Evaluate and Treat. PT Reason for Consult: weakness This query below is only for informational purposes and is not editable. 09/14/20 16:36 Consult to Physician [CONS] Routine Consulting Provider: Gualberto Velasco Call Completed to Consulting Physician: Yes Reason for Consult: Perineal skin lesion, question biopsy Hospital Course: Ms. Stephens is an 85-year-old woman who was admitted through the emergency department with recent history of progressive weakness and worsening dementia with increased confusion. Dementia has been worsening over the past several months, now in the past week she has become extremely weak to the point where she has difficulty with transitions and increase in falls. She was brought into the emergency department because she fell this morning and they were unable to get her up off of the floor. Evaluation is unremarkable except for possible urinary tract infection. Family feels that they are unable to provide ongoing care for her at home because of her progressive weakness. 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 CT scan of the head was obtained showing no evidence of acute infarct or bleed. Examination did show evidence of perineal mass. Dr. Velasco was consulted and was able to perform a biopsy of this mass, results from the biopsy are pending at t he time of discharge. Urine culture did grow out E. coli and by the time of discharge she had completed the course of antibiotic therapy with ceftriaxone. She was seen daily by physical therapy while hospitalized and did modestly improve as far as overall strength during hospital stay. Family feels that they are unable to care for her at home and [facility] as well as occupational therapy. Activity will be as tolerated and she will resume usual diet. Follow-up appointment will be scheduled with Dr. Velasco for September 27, to review pathology results from perineal biopsy. - Patient Instructions Diet: Usual Diet as Tolerated Activity: As Tolerated Other/Special Instructions: Daily physical therapy and Occupational Therapy [facility] at the jail. Please schedule follow-up appointment with Dr. Velasco for September 27 early to mid morning. This appointment is for review of pathology results from perineal biopsy. - Discharge Plan *PRESCRIPTION DRUG MONITORING PROGRAM REVIEWED*: Not Applicable *COPY OF PRESCRIPTION DRUG MONITORING REPORT IN PATIENT KARAN: Not Applicable Home Medications: Home Meds Levothyroxine Sodium [Levoxyl] 50 mcg PO DAILY 07/13/13 [History] Cholecalciferol (Vitamin D3) [Vitamin D3] 1,000 unit PO DAILY 11/12/17 [History] Acetaminophen [Pain Reliever] 500 mg PO ASDIRECTED 09/14/20 [History] Aspirin 81 mg PO DAILY 09/14/20 [History] B-Complex with Vitamin C [B-Complex with C] 1 tab PO DAILY 09/14/20 [History] Citalopram Hydrobromide [Celexa] 40 mg PO DAILY 09/14/20 [History] Omeprazole 40 mg PO DAILY 09/14/20 [History] atorvaSTATin [Lipitor] 10 mg PO DAILY 09/14/20 [History] Referrals: Chris Ojeda, [employer] [Primary Care Provider] - - Discharge Summary/Plan Comment DC Time >30 min.: No - Patient Data Vitals - Most Recent: Last Vital Signs Temp 97.5 F 09/17/20 10:23 Pulse 79 09/17/20 10:23 Resp 16 09/17/20 10:23 BP 123/40 L 09/17/20 10:23 Pulse Ox 97 09/17/20 10:23 Weight - Most Recent: 118 lb 3.2 oz I&O - Last 24 hours: Intake & Output 09/16/20 09/17/20 09/17/20 22:59 06:59 14:59 Intake Total 480 300 Balance 480 300 [place] Results - Last 24 hrs: Microbiology 09/14/20 11:54 Urine Culture - Final Urine, Quick Cath (In-Out) Escherichia Coli Med Orders - Current: Current Medications Acetaminophen (Tylenol) 650 mg PO Q4H PRN PRN Reason: Pain (Mild 1-3)/fever Aspirin (Aspirin) 81 mg PO DAILY [facility] Last Admin: 09/17/20 09:11 Dose: 81 mg Documented by: Atorvastatin Calcium (Lipitor) 10 mg PO BEDTIME [facility] Last Admin: 09/16/20 20:50 Dose: 10 mg Documented by: Bacitracin (Bacitracin Oint) 0 gm TOP BID [facility] Last Admin: 09/17/20 09:11 Dose: 1 applic Documented by: Enoxaparin Sodium (Lovenox) 40 mg SUBCUT DAILY [facility] Last Admin: 09/17/20 09:11 Dose: 40 mg Documented by: Haloperidol (Haldol) 1 mg PO Q2H PRN PRN Reason: Agitation Ceftriaxone Sodium 1 gm/ (Sodium Chloride) 50 mls @ 100 mls/hr IV Q24H [facility] Last Admin: 09/16/20 13:49 Dose: 100 mls/hr Documented by: Levothyroxine Sodium (Synthroid) 50 mcg PO ACBREAKFAST [facility] Last Admin: 09/17/20 07:48 Dose: 50 mcg Documented by: Melatonin (Melatonin) 9 mg PO BEDTIME [facility] Last Admin: 09/16/20 20:50 Dose: 9 mg Documented by: Ondansetron HCl (Zofran) 4 mg IV Q4H PRN PRN Reason: Nausea/Vomiting Omeprazole 40mg Cap ((Ptom)) 0 each PO ACBREAKFAST [facility] Last Admin: 09/17/20 07:47 Dose: 1 each Documented by: Citalopram 40mg Tab ((Ptom)) 0 each PO DAILY [facility] Last Admin: 09/17/20 09:12 Dose: 1 each Documented by: Polyethylene Glycol (Miralax) 17 gm PO DAILY PRN PRN Reason: Constipation Sodium Chloride (Saline Flush) 10 ml FLUSH ASDIRECTED PRN PRN Reason: Keep Vein Open Discontinued Medications Enoxaparin Sodium (Lovenox) 40 mg SUBCUT Q24H [facility] Last Admin: 09/14/20 17:24 Dose: Not Given Documented by: Enoxaparin Sodium (Lovenox) 30 mg SUBCUT DAILY [facility] Last Admin: 09/16/20 10:03 Dose: 30 mg Documented by: Sodium Chloride (Normal Saline) 1,000 mls @ 75 mls/hr IV ASDIRECTED [facility] Last Admin: 09/14/20 14:49 Dose: 75 mls/hr Documented by: Iopamidol (Isovue-300 (61%)) 100 ml IV . DIRECTED PRN PRN Reason: RADIOLOGY EXAM Stop: 09/15/20 15:20 Last Admin: 09/14/20 18:05 Dose: 100 ml Documented by: Lidocaine/Epinephrine (Xylocaine 1% With Epinephrine 1:100,000) 50 ml INJECT ONETIME ONE Stop: 09/15/20 09:01 Last Admin: 09/15/20 13:20 Dose: 50 ml Documented by: Nitrofurantoin Macrocrystals (Macrobid) 100 mg PO ONETIME ONE Stop: 09/14/20 11:52 Last Admin: 09/14/20 13:12 Dose: 100 mg Documented by: Potassium Chloride (Klor-Con M20) 40 meq PO ONETIME ONE Stop: 09/16/20 08:46 Last Admin: 09/16/20 10:01 Dose: 40 meq Documented by: Sodium Chloride (Saline Flush) 10 ml FLUSH ONETIME ONE Stop: 09/14/20 15:20 Last Admin: 09/14/20 16:20 Dose: 10 ml Documented by: - Exam General: Reports: Alert, Cooperative, Mild Distress. Denies: Oriented Lungs: Reports: Clear to Auscultation, Normal Respiratory Effort Cardiovascular: Reports: Regular Rate, Regular Rhythm, No Murmurs GI/Abdominal Exam: Soft, Non-Tender, No Organomegaly, No Distention (Female) Exam: Other (Perineal mass status post biopsy) Extremities: Non-Tender, No Pedal Edema
[2020-09-17] MEDS: cefTRIAXone 1 GM in Sodium Chloride 0.9% 50 ML IV SCH (13:44)
[2020-09-17] MEDS: Melatonin 3 MG Tab PO SCH (21:44)
[2020-09-17] MEDS: atorvaSTATin 10 MG Tab (PTOM) PO SCH (21:45)
[2020-09-18 07:27] VITALS: BP 147/42; PULSE 69
[2020-09-18] MEDS: LEVOTHYROXINE 50 MCG PO SCH (08:54)
[2020-09-18] MEDS: OMEPRAZOLE 40MG CAP (PTOM) PO SCH (08:54)
[2020-09-18] MEDS: CITALOPRAM 40MG TAB (PTOM) PO SCH (08:55)
[2020-09-18] MEDS: Aspirin 81 MG Tab.Chew PO SCH (08:55)
[2020-09-18] MEDS: Bacitracin Oint 28.35 GM Tube TOP SCH (08:55)
--- NOTE | 2020-09-24 13:22 | OR ---
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 OPERATIVE PROCEDURE: Bilateral labial biopsies for diagnosis of probable vulvar carcinoma ([id number]). ANESTHESIA: Local. PROMOTIONS OFFICER: MEL Traore INDICATIONS FOR PROCEDURE: This is an 85-year-old, admitted after a fall with an extremely debilitating condition. She has what appears to be bilateral fairly extensive vulvar carcinoma. The patient's family would like to have biopsies obtained just to confirm the diagnosis but would not likely want to have any additional treatment. Potential risks of the procedure were reviewed with the son and daughters, and they wished to proceed with the bilateral biopsies. DESCRIPTION OF PROCEDURE: At the patient's bedside, the labial areas were prepped and draped and on each side, anesthetized with 1% lidocaine. Elliptical incisions were made extending from what appeared to be relatively normal skin onto the pathologic skin on each side, and the incisions were then closed with some 4-0 Vicryl stitch. The length of biopsies in each case was around 1.5 cm to 2 cm. Bacitracin was applied. There were no evident complications. Gualberto Velasco MD /[id number]
== END 2020-09-18 10:00 ==
LOC: JP.ED 10:07 → JP.MS 13:54
PROVIDERS: ADMIT Hospitalist; ATTEND Internal Medicine
DX: N76.2 Acute vulvitis (principal); R53.1 Weakness; F03.90 Unspecified dementia, unspecified severity, without behavioral disturbance, psychotic disturbance, mood disturbance, and anxiety; E03.9 Hypothyroidism, unspecified; M79.7 Fibromyalgia; N39.0 Urinary tract infection, site not specified; E11.22 Type 2 diabetes mellitus with diabetic chronic kidney disease; I12.9 Hypertensive chronic kidney disease with stage 1 through stage 4 chronic kidney disease, or unspecified chronic kidney disease; N18.30 Chronic kidney disease, stage 3 unspecified; K21.9 Gastro-esophageal reflux disease without esophagitis; Z79.890 Hormone replacement therapy; E11.42 Type 2 diabetes mellitus with diabetic polyneuropathy; G47.30 Sleep apnea, unspecified; K59.09 Other constipation; Z87.01 Personal history of pneumonia (recurrent); Z88.0 Allergy status to penicillin; Z88.1 Allergy status to other antibiotic agents; Z88.2 Allergy status to sulfonamides; Z88.8 Allergy status to other drugs, medicaments and biological substances; Z79.82 Long term (current) use of aspirin; Z79.899 Other long term (current) drug therapy; Z20.822 Contact with and (suspected) exposure to COVID-19; Z90.49 Acquired absence of other specified parts of digestive tract; Z98.890 Other specified postprocedural states
CPT/HCPCS: 0241U; 36415; 56605; 56606; 70470; 73610; 80048; 80053; 81001; 82550; 83735; 85025; 87086; 87088; 87186; 88305; 88312; 88365; 96365; 96366; 96372; 96376; 97162; 97530; 99217; 99219; 99224; 99225; 99283; 99285; A9270; G0378; J0696; J1650; J7030; Q9967; U0002

== ENCOUNTER 2020-12-29 16:16 | Emergency (ER) | payer MEDICARE ==
[2020-12-29 16:22] VITALS: BP 134/61; PULSE 86
[2020-12-29] MEDS ORDERED: Sodium Chloride 0.9% 10 ML Syringe FLUSH PRN (16:29)
[2020-12-29] MEDS ORDERED: Sodium Chloride 0.9% 1,000 ML IV SCH ×2 (16:30→17:00)
--- NOTE | 2020-12-29 17:05 | EDM.PDOC ---
ED HPI GENERAL MEDICAL PROBLEM - General Chief Complaint: Skin Complaint Stated Complaint: [facility] Time Seen by Provider: 12/29/20 16:22 Source of Information: Reports: Patient, EMS, Retirement Records, RN Notes Reviewed History Limitations: Reports: Altered Mental Status (Not oriented to self, history of dementia) - History of Present Illness INITIAL COMMENTS - FREE TEXT/NARRATIVE: Barbara presents today from the snf per Dr. Quevedo for transfer to [facility] for critical ischemia left foot with a history of PVD. Patient was transported to [facility] via [facility], and will be transferred to [facility] via [facility]. - Related Data Allergies Allergy/AdvReac Type Severity Reaction Status Date / Time ciprofloxacin Allergy Mild Itching Verified 12/29/20 17:02 niacin Allergy Cannot Verified 12/29/20 17:02 Remember Penicillins Allergy Rash Verified 12/29/20 17:02 Sulfa (Sulfonamide Allergy Sweating Verified 12/29/20 17:02 Antibiotics) tolmetin sodium Allergy Itching Verified 12/29/20 17:02 [From Tolectin] Home Meds: Home Meds Levothyroxine Sodium [Levoxyl] 50 mcg PO DAILY 07/13/13 [History] Cholecalciferol (Vitamin D3) [Vitamin D3] 1,000 unit PO DAILY 11/12/17 [History] Acetaminophen [Pain Reliever] 500 mg PO ASDIRECTED 09/14/20 [History] Aspirin 81 mg PO DAILY 09/14/20 [History] B-Complex with Vitamin C [B-Complex with C] 1 tab PO DAILY 09/14/20 [History] Citalopram Hydrobromide [Celexa] 40 mg PO DAILY 09/14/20 [History] Omeprazole 40 mg PO DAILY 09/14/20 [History] atorvaSTATin [Lipitor] 10 mg PO DAILY 09/14/20 [History] Past Medical History HEENT History: Reports: Allergic Rhinitis Cardiovascular History: Reports: Hypertension Respiratory History: Reports: Bronchitis, Recurrent, Pneumonia, Recurrent, Sleep Apnea Gastrointestinal History: Reports: Chronic Constipation, GERD, Other (See Below) Other Gastrointestinal History: nausea and vomiting, h/o gastroenteritis Genitourinary History: Reports: Other (See Below) Other Genitourinary History: CKD III, h/o UTI MEDICAL EXAMINER History: Reports: Musculoskeletal History: Reports: Back Pain, Chronic, Fracture, Fibromyalgia, Other (See Below) Other Musculoskeletal History: bursitis, closed avulsion fx thumb, dislocation PIP finger Neurological History: Reports: CVA, Neuropathy, Peripheral, Other (See Below) Other Neuro History: CVA affecting L-side approximately , dementia Psychiatric History: Reports: Anxiety, Dementia, Depression, Panic Attack Endocrine/Metabolic History: Reports: Diabetes, Type II, Hypothyroidism Hematologic History: Reports: B12 Deficiency Oncologic (Cancer) History: Reports: Breast - Infectious Disease History Infectious Disease History: Reports: Chicken Pox, Measles, Mumps - Past Surgical History HEENT Surgical History: Reports: Oral Surgery, Tonsillectomy GI Surgical History: Reports: Appendectomy, Bariatric Procedure, Cholecystectomy, Colonoscopy, EGD Female Surgical History: Reports: Hysterectomy Neurological Surgical History: Reports: None Musculoskeletal Surgical History: Reports: Hip Replacement Oncologic Surgical History: Reports: Mastectomy Social & Family History - Family History Family Medical History: No Pertinent Family History - Caffeine Use Caffeine Use: Reports: Other ED ROS GENERAL - Review of Systems Review Of Systems: See Below Constitutional: Reports: No Symptoms HEENT: Reports: No Symptoms Respiratory: Reports: No Symptoms Cardiovascular: Reports: No Symptoms Endocrine: Reports: No Symptoms GI/Abdominal: Reports: No Symptoms : Reports: No Symptoms Musculoskeletal: Reports: Foot Pain (left great toe pain) Skin: Reports: Other (ischemia left great toe with necrosis. ) Neurological: Reports: Confusion, Other (dementia, history of CVA) Psychiatric: Reports: No Symptoms Hematologic/Lymphatic: Reports: No Symptoms Immunologic: Reports: No Symptoms ED EXAM, SKIN/RASH Exam: See Below Exam Limited By: Altered Mental Status (history of dementia, confusion) General Appearance: Alert (to self and situation), WD/WN, No Apparent Distress Eye Exam: Bilateral Eye: PERRL Ears: Normal External Exam, Normal Canal, Hearing Grossly Normal, Normal TMs Head: Atraumatic, Normocephalic Neck: Normal Inspection, Supple, Non-Tender, Full Range of Motion. No: Lymphadenopathy (R), Lymphadenopathy (L) Respiratory/Chest: No Respiratory Distress, Lungs Clear, Normal Breath Sounds, No Accessory Muscle Use, Chest Non-Tender. No: Crackles, Rales, Rhonchi, Wheezing Cardiovascular: Regular Rate, Rhythm, No Edema, No Gallop, No Rub, Other (noted murmur) Peripheral Pulses: 1+: Dorsalis Pedis (L), Dorsalis Pedis (R), 2+: Radial (L), Radial (R) GI/Abdominal: Normal Bowel Sounds, Soft, Non-Tender, No Organomegaly, No Distention, No Mass. No: Distended, Guarding, Rigid, Rebound, Tender Back Exam: Normal Inspection. No: CVA Tenderness (R), CVA Tenderness (L) Extremities: Slow Capillary Refill, Other (tenderness to left great toe) Neurological: Alert, Memory Loss Remote Events Psychiatric: Normal Affect, Normal Mood Skin: Warm, Dry, Other (necrosis left great toe, ischemia) Associated features: Tenderness Course - Vital Signs Last Recorded V/S: Last Vital Signs Temp 36.5 C 12/29/20 16:59 Pulse 86 12/29/20 16:59 Resp 16 12/29/20 16:59 BP 134/61 12/29/20 16:59 Pulse Ox 100 12/29/20 16:59 - Orders/Labs/Meds Orders: Active Orders 24 hr Category Date Time Status Sodium Chloride 0.9% [Normal Saline] 1,000 ml Med 12/29/20 17:00 Ordered IV ASDIRECTED Sodium Chloride 0.9% [Saline Flush] Med 12/29/20 16:29 Active 10 ml FLUSH ASDIRECTED PRN Saline Lock Insert [OM.PC] Routine Oth 12/29/20 16:29 Ordered Medication Orders Sodium Chloride (Normal Saline) 1,000 mls @ 50 mls/hr IV ASDIRECTED [facility] Sodium Chloride (Sodium Chloride 0.9% 10 Ml Syringe) 10 ml FLUSH ASDIRECTED PRN PRN Reason: Keep Vein Open Meds: Medications Generic Name Dose Route Start Last Admin Trade Name Freq PRN Reason Stop Dose Admin Sodium Chloride 1,000 mls @ 50 mls/hr 12/29/20 17:00 Normal Saline IV ASDIRECTED [facility] Sodium Chloride 10 ml 12/29/20 16:29 Sodium Chloride 0.9% 10 Ml Syringe FLUSH ASDIRECTED PRN Keep Vein Open Departure - Departure Time of Disposition: 16:50 Disposition: DC/Tfer to Acute Hospital 02 Condition: Fair Clinical Impression: Critical ischemia of lower extremity, Ischemic necrosis of toe, PVD (peripheral vascular disease) - Discharge Information *PRESCRIPTION DRUG MONITORING PROGRAM REVIEWED*: No *COPY OF PRESCRIPTION DRUG MONITORING REPORT IN PATIENT KARAN: No Referrals: PCP,None [Primary Care Provider] - Forms: ED Department Discharge Additional Instructions: Transfer to [facility] for vascular services via [facility]. Sepsis Event Note (ED) - Focused Exam Vital Signs: Vital Signs Temp Pulse Resp BP Pulse Ox 12/29/20 16:59 36.5 C 86 16 134/61 100 12/29/20 16:22 36.5 C 86 16 134/61 100 - My Orders Last 24 Hours: My Active Orders 12/29/20 16:29 Sodium Chloride 0.9% [Saline Flush] 10 ml FLUSH ASDIRECTED PRN Saline Lock Insert [OM.PC] Routine 12/29/20 17:00 Sodium Chloride 0.9% [Normal Saline] 1,000 ml IV ASDIRECTED - Assessment/Plan Last 24 Hours: My Active Orders 12/29/20 16:29 Sodium Chloride 0.9% [Saline Flush] 10 ml FLUSH ASDIRECTED PRN Saline Lock Insert [OM.PC] Routine 12/29/20 17:00 Sodium Chloride 0.9% [Normal Saline] 1,000 ml IV ASDIRECTED Assessment:: Critical ischemia of lower extremity, Ischemic necrosis of toe PVD Plan: Critical ischemia of lower extremity, Ischemic necrosis of toe Provider acceptance per Dr. Núñez [facility] ER per Dr. Quevedo, verified by this provider. Patient transfer to [facility] ER for evaluation and vascular services. Transfer to [facility] for vascular services via [facility].
== END 2020-12-29 17:00 ==
LOC: JP.ED 16:16
DX: E11.52 Type 2 diabetes mellitus with diabetic peripheral angiopathy with gangrene (principal); I96 Gangrene, not elsewhere classified; R41.82 Altered mental status, unspecified; F03.90 Unspecified dementia, unspecified severity, without behavioral disturbance, psychotic disturbance, mood disturbance, and anxiety; K21.9 Gastro-esophageal reflux disease without esophagitis; I12.9 Hypertensive chronic kidney disease with stage 1 through stage 4 chronic kidney disease, or unspecified chronic kidney disease; E11.22 Type 2 diabetes mellitus with diabetic chronic kidney disease; N18.30 Chronic kidney disease, stage 3 unspecified; E11.42 Type 2 diabetes mellitus with diabetic polyneuropathy; E03.9 Hypothyroidism, unspecified; Z88.1 Allergy status to other antibiotic agents; Z88.0 Allergy status to penicillin; Z88.2 Allergy status to sulfonamides; Z88.8 Allergy status to other drugs, medicaments and biological substances; Z79.82 Long term (current) use of aspirin; Z79.899 Other long term (current) drug therapy
CPT/HCPCS: 99285